=== PATIENT | female | born 1995 | race Caucasian/White ===

== ENCOUNTER 2022-10-05 17:22 | Outpatient (CLI) | payer OTHER, SELFPAY ==
[2022-10-05 18:22] LABS: Beta HCG Quantitative 78.55 mIU/ML
== END 2022-10-05 17:23 | disposition home or self-care (01) ==
LOC: ANHLAB 17:26
PROVIDERS: Visit Provider Obstetrics & Gynecology
DX: O03.9 Complete or unspecified spontaneous abortion without complication (principal); Z3A.00 Weeks of gestation of pregnancy not specified
CPT/HCPCS: 36415; 84702

== ENCOUNTER 2022-10-26 07:02 | Outpatient (CLI) | payer OTHER, SELFPAY ==
[2022-10-26 08:04] LABS: Beta HCG Quantitative < 2.39 mIU/ML
== END 2022-10-26 07:03 | disposition home or self-care (01) ==
LOC: ANHLAB 07:04
PROVIDERS: Visit Provider Obstetrics & Gynecology
DX: O03.9 Complete or unspecified spontaneous abortion without complication (principal); Z3A.00 Weeks of gestation of pregnancy not specified
CPT/HCPCS: 36415; 84702

== ENCOUNTER 2022-11-23 17:31 | Outpatient (CLI) | payer OTHER, SELFPAY ==
[2022-11-23 18:29] LABS: Beta HCG Quantitative 128.67 mIU/ML
[2022-11-25 13:13] LABS: Progesterone 38.3 ng/mL (***)
== END 2022-11-23 17:32 | disposition home or self-care (01) ==
LOC: ANHLAB 17:33
PROVIDERS: Visit Provider Obstetrics & Gynecology
DX: O09.299 Supervision of pregnancy with other poor reproductive or obstetric history, unspecified trimester (principal); Z3A.00 Weeks of gestation of pregnancy not specified
CPT/HCPCS: 36415; 84144; 84702

== ENCOUNTER 2022-11-25 16:54 | Outpatient (CLI) | payer OTHER, SELFPAY ==
[2022-11-25 17:45] LABS: Beta HCG Quantitative 243.39 mIU/ML
== END 2022-11-25 16:55 | disposition home or self-care (01) ==
LOC: ANHLAB 16:55
PROVIDERS: Visit Provider Obstetrics & Gynecology
DX: O09.299 Supervision of pregnancy with other poor reproductive or obstetric history, unspecified trimester (principal)
CPT/HCPCS: 36415; 84702

== ENCOUNTER 2022-11-27 16:25 | Outpatient (CLI) | payer OTHER, SELFPAY | END 2022-11-27 16:26 | disposition home or self-care (01) | LOC: ANHLAB 16:27 | PROVIDERS: Visit Provider Obstetrics & Gynecology | DX: O09.299 Supervision of pregnancy with other poor reproductive or obstetric history, unspecified trimester (principal); Z3A.00 Weeks of gestation of pregnancy not specified | CPT/HCPCS: 36415; 84702; 86850; 86900; 86901 ==

== ENCOUNTER → 2022-12-14 15:53 | Outpatient (CLI) | payer OTHER, SELFPAY ==
--- NOTE | ~2022-12-14 | US_ITS ---
EXAMINATION: US OB <=14 wk fetus w TV DATE: 12/14/2022 16:22 INDICATION: Hemorrhage in early TECHNIQUE: Real-time transabdominal and transvaginal obstetric ultrasound. FINDINGS: No prior studies for comparison. The uterus measures 9.5 x 4.8 x 5.6 cm. There is an intrauterine gestational sac, with pole juan ntified. The crown rump length measures 0.64 cm, which correlates with a estimated gestational age o f 6 weeks 3 days. heart tones are identified measuring 131 BPM. There is a small subchorionic hemorrhage measuring 8 x 7 x 8 mm. There is a corpus luteal cyst of the left ovary measuring 1.6 x 1 .2 x 1.1 cm. IMPRESSION: 1. SL IUP with an EGA of 6 weeks, 3 days (EDC by current ultrasound of 08/06/2023). 2: Small subchorionic hemorrhage measuring 8 x 7 x 8 mm. Reviewed, dictated and finalized at location B. R LIFT OPERATOR IMPRESSION: 1. SL IUP with an EGA of 6 weeks, 3 days (EDC by current ultrasound of 08/06/20 23). 2: Small subchorionic hemorrhage measuring 8 x 7 x 8 mm.
== END ==
PROVIDERS: PCP Obstetrics & Gynecology; Visit Provider Obstetrics & Gynecology
DX: O46.91 Antepartum hemorrhage, unspecified, first trimester (principal); Z3A.01 Less than 8 weeks gestation of pregnancy
CPT/HCPCS: 76801; 76817

== ENCOUNTER 2023-02-09 14:00 | Outpatient (CLI) | payer OTHER, SELFPAY ==
--- NOTE | ~2023-02-09 | US_ITS ---
EXAMINATION: US OB limited DATE: 02/09/2023 14:49 INDICATION: Spotting during first trimester TECHNIQUE: Real-time ultrasound of the pelvis was performed. The interpreting radiologist was not pre sent for the study. COMPARISON: None. FINDINGS: There is a single living fetus in variable presentation. The placenta is anterior. The cerv ical length is 5.1 cm. cardiac activity and movement are noted. heart rate is 152 b eats per minute (bpm). The amniotic fluid index is subjectively normal. IMPRESSION: 1. Single living fetus in variable presentation. No sonographic correlate for the patient's symptoms. Reviewed, dictated and finalized at location L. IMPRESSION: 1. Single living fetus in variable presentation. No sonographic correlate for t he patient's symptoms.
== END 2023-02-09 14:01 | disposition home or self-care (01) ==
PROVIDERS: PCP Obstetrics & Gynecology; Visit Provider Obstetrics & Gynecology
DX: O26.852 Spotting complicating pregnancy, second trimester (principal); Z3A.00 Weeks of gestation of pregnancy not specified
CPT/HCPCS: 76815

== ENCOUNTER 2023-05-10 10:05 | Observation (INO) | payer OTHER, SELFPAY ==
[2023-05-10] VITALS (11 sets, daily range): BP systolic 114–157; BP diastolic 66–92; PULSE 80–107; BMI 30.4
[2023-05-10] MEDS: NIFEdipine 10 MG CAPSULE PO (10:59)
[2023-05-10 11:22] LABS: Basophils Absolute Auto 0.1 K/mm3 (0.0-0.1); Basophils Percent Auto 0.5 % (0.2-1.2); Eosinophils Percent Auto 0.4 % (0-4.4); Hematocrit 35.8 % (37.0-47.0); Hemoglobin 12.2 g/dL (12.0-15.0); Immature Granulocyte Absolute 0.08 K/mm3 (0.00-0.031); Immature Granulocyte Percent A 0.8 % (0-0.5); Lymphocytes Absolute Auto 1.26 K/mm3 (0.9-3.2); Lymphocytes Percent Auto 13.1 % (18.3-44.2); Mean Corpuscular HGB Conc 34.1 g/dl (32-36); Mean Corpuscular Hemoglobin 32.9 pg (26-34); Mean Corpuscular Volume 96.5 fl (80-100); Mean Platelet Volume 9.4 fl (7.4-10.4); Monocytes Absolute Auto 0.5 K/mm3 (0.1-0.6); Monocytes Percent Auto 5.6 % (2.6-8.5); Neutrophils Absolute Auto 7.6 K/mm3 (1.3-6.7); Neutrophils Percent Auto 79.6 % (45.5-73.1); Platelet Count Result 213 k/mm3 (150-375); Red Blood Count 3.71 M/mm3 (4.2-5.4); Red Cell Distribution Width 12.2 % (11.5-14.5); White Blood Count 9.6 K/mm3 (4.5-10.0)
[2023-05-10 11:32] LABS: INR 0.9; Prothrombin Time 12.3 Seconds (11.1-14.7)
[2023-05-10 11:33] LABS: Partial Thromboplastin Time 28.6 SECONDS (22.3-36.8)
[2023-05-10 11:44] LABS: Appearance Urine Clear (Clear); Bacteria Urine Rare /hpf; Bilirubin Urine Negative (Negative); Blood Urine Negative (Negative); Color Urine Yellow (Yellow); Glucose Urine UA Negative (Negative); Ketones Urine Negative (Negative); Leukocyte Esterase Ur Trace LEU/UL (Negative); Nitrate Urine Negative (Negative); Non Pathogenic Casts 0-2; Protein Urine Negative (Negative); RBC Urine 0-2 /hpf (0-2); Specific Grav Ur 1.008 (1.001-1.035); Squamous Epithelial Cell Urine None seen /hpf (Few); Urobilinogen Urine 0.2 mg/dL (<2.0); WBC Urine 0-5 /hpf
[2023-05-10 11:50] LABS: Add Urine Microscopic? YES
[2023-05-10 12:16] LABS: Potassium 3.5 mmol/L (3.4-5.0)
[2023-05-10 12:17] LABS: Alanine Aminotransferase 18 U/L (6-35); Albumin Level 3.8 g/dL (3.5-5.1); Alkaline Phosphatase 84 U/L (38-126); Anion Gap 8 mmol/L (8-16); Aspartate Amino Transferase 25 U/L (14-36); Bilirubin,Total 0.3 mg/dL (0.2-1.3); Blood Urea Nitrogen 5 mg/dL (7-17); Calcium 8.6 mg/dL (8.4-10.2); Carbon Dioxide 20 mmol/L (22-30); Chloride 106 mmol/L (98-107); Estimated Glomerular Filt Rate > 60; Glucose 107 mg/dL (65-110); Sodium 134 mmol/L (137-145); Uric Acid 3.4 mg/dL (2.5-7.5)
--- NOTE | 2023-05-10 12:42 | OBADM ---
This patient, Dulce Palma, admitted to the OB room OB Post 116 for observation. Patient/family oriented to hospital policies and general routines including ID bracelet, bed and alarms, visiting hours, pain management, procedures, bathroom and other care routines, personal items, smoking policy, room service/diet, and visiting hours. Patient/Family are encouraged to report perceived risks to care and to ask questions if they do not understand what they are told or what they should do.
[2023-05-10 13:15] LABS: Total Protein Urine Random 15 mg/dL; Ur Ttl Prot Creatinine Ratio 0.39 mg/mg (0-0.20)
--- NOTE | 2023-05-17 16:15 | PM.OBTRLD ---
OB - Triage/Final Diagnosis Visit Information Comments/Additional reasons for admission: I have assessed the risk for this patient, Dulce Palma, and determined that she would benefit from observation care. Evaluation Laboratory results: Laboratory Tests 05/10/23 05/10/23 05/10/23 10:53 11:02 11:11 WBC 9.6 RBC 3.71 L Hgb 12.2 Hct 35.8 L MCV 96.5 MCH 32.9 MCHC 34.1 RDW 12.2 Plt Count 213 MPV 9.4 Immature Gran % (Auto) 0.8 H Neut % (Auto) 79.6 H Lymph % (Auto) 13.1 L [place] % (Auto) 5.6 Eos % (Auto) 0.4 Baso % (Auto) 0.5 Lymph # (Auto) 1.26 [place] # (Auto) 0.5 Eos # (Auto) 0.0 Baso # (Auto) 0.1 Abs Immat Gran (auto) 0.08 H Absolute Neuts (auto) 7.6 H Absolute Nucleated RBC 0.0 Nucleated RBC % 0.0 PT 12.3 INR 0.9 APTT 28.6 Sodium Potassium Chloride Carbon Dioxide Anion Gap BUN Creatinine Estim Creat Clear Calc Estimated GFR Glucose Uric Acid Calcium Total Bilirubin AST ALT Alkaline Phosphatase Total Protein Albumin Urine Color Yellow Urine Appearance Clear Urine pH 7.0 Ur Specific [place] 1.008 Urine Protein Negative Urine Glucose (UA) Negative Urine Ketones Negative Ur Blood (Man) Negative Urine Nitrate Negative Urine Bilirubin Negative Urine Urobilinogen 0.2 Leukocyte Esterase Rfl Trace H Urine RBC 0-2 Urine WBC 0-5 Ur Squamous Epith Cells None seen Urine Bacteria Rare Urine Casts 0-2 U Random Total Protein 15 Urine Creatinine 38.0 Protein/Creat Ratio 2 0.39 H KB Hemoglobin Negative 05/10/23 11:48 WBC RBC Hgb Hct MCV MCH MCHC RDW Plt Count MPV Immature Gran % (Auto) Neut % (Auto) Lymph % (Auto) [place] % (Auto) Eos % (Auto) Baso % (Auto) Lymph # (Auto) [place] # (Auto) Eos # (Auto) Baso # (Auto) Abs Immat Gran (auto) Absolute Neuts (auto) Absolute Nucleated RBC Nucleated RBC % PT INR APTT Sodium 134 L Potassium 3.5 Chloride 106 Carbon Dioxide 20 L Anion Gap 8 BUN 5 L Creatinine 0.40 L Estim Creat Clear Calc Not Reportable Estimated GFR > 60 Glucose 107 Uric Acid 3.4 Calcium 8.6 Total Bilirubin 0.3 AST 25 ALT 18 Alkaline Phosphatase 84 Total Protein 7.0 Albumin 3.8 Urine Color Urine Appearance Urine pH Ur Specific [place] Urine Protein Urine Glucose (UA) Urine Ketones Ur Blood (Man) Urine Nitrate Urine Bilirubin Urine Urobilinogen Leukocyte Esterase Rfl Urine RBC Urine WBC Ur Squamous Epith Cells Urine Bacteria Urine Casts U Random Total Protein Urine Creatinine Protein/Creat Ratio 2 KB Hemoglobin Final Diagnosis (1) Spotting complicating , third trimester: Code(s): O26.853 - Spotting complicating , third trimester Status: Acute (2) Elevated blood pressure affecting in third trimester, antepartum: Code(s): O16.3 - Unspecified maternal hypertension, third trimester Status: Acute
== END 2023-05-10 13:49 | disposition home or self-care (01) ==
PROVIDERS: Admitting Provider Obstetrics & Gynecology; Visit Provider Obstetrics & Gynecology
DX: O26.853 Spotting complicating pregnancy, third trimester (principal); O16.3 Unspecified maternal hypertension, third trimester; Z3A.27 27 weeks gestation of pregnancy
CPT/HCPCS: 36415; 80053; 81001; 82570; 84156; 84550; 85025; 85460; 85610; 85730; A9270; G0378; G0379

== ENCOUNTER 2023-05-11 14:30 | Outpatient (NON) | payer OTHER, SELFPAY ==
[2023-05-11 14:58] VITALS: BMI 30.2
[2023-05-11 16:32] LABS: Collection Time Urine 24 HOURS
[2023-05-11 16:34] LABS: Total Volume 24 Hour Urine 3200 ml
[2023-05-11 16:35] LABS: Patient Weight 170 Lbs; Specific Gravity Ur 1.011; Total Volume 24 Hour Urine 3200 ml
[2023-05-11 16:44] LABS: Total Protein Urine 24 Hr 448 mg/24hr (28-141); Total Protein Urine Random 14 mg/dL
[2023-05-11 16:45] LABS: Creatinine Clearance Urine 197.7 ml/min (75-125)
== END 2023-05-11 14:31 | disposition home or self-care (01) ==
LOC: ANHOBOP 14:50
PROVIDERS: Visit Provider Obstetrics & Gynecology
DX: Z34.90 Encounter for supervision of normal pregnancy, unspecified, unspecified trimester (principal); Z3A.00 Weeks of gestation of pregnancy not specified
CPT/HCPCS: 81050; 82575; 84156

== ENCOUNTER 2023-05-31 06:57 | Outpatient (CLI) | payer OTHER, SELFPAY ==
[2023-05-31 07:13] VITALS: BMI 30.8
[2023-05-31 07:26] LABS: Alanine Aminotransferase 20 U/L (6-35); Albumin Level 3.7 g/dL (3.5-5.1); Alkaline Phosphatase 89 U/L (38-126); Anion Gap 7 mmol/L (8-16); Aspartate Amino Transferase 26 U/L (14-36); Bilirubin,Total 0.3 mg/dL (0.2-1.3); Blood Urea Nitrogen 5 mg/dL (7-17); Calcium 8.6 mg/dL (8.4-10.2); Carbon Dioxide 17 mmol/L (22-30); Chloride 105 mmol/L (98-107); Estimated CRCL calculation 168 ml/min; Estimated Glomerular Filt Rate > 60; Glucose 118 mg/dL (65-110); Potassium 3.4 mmol/L (3.4-5.0); Sodium 129 mmol/L (137-145)
[2023-05-31 08:56] LABS: Collection Time Urine 24 HOURS; Total Volume 24 Hour Urine 2750 ml
[2023-05-31 09:04] LABS: Creatinine Urine 42.2 mg/dL; Patient Weight 174 Lbs
[2023-05-31 09:10] LABS: Creatinine Clearance Urine 191.9 ml/min (75-125); Serum Creat 0.4
[2023-05-31 10:08] LABS: Specific Gravity Ur 1.007
[2023-05-31 10:21] LABS: Total Protein Urine 24 Hr 204 mg/24hr (0-149); Total Protein Urine Random 7.4 mg/dL (0.0-11.9)
== END 2023-05-31 06:58 | disposition home or self-care (01) ==
LOC: ANHOBOP 07:04
PROVIDERS: Visit Provider Obstetrics & Gynecology
DX: Z34.90 Encounter for supervision of normal pregnancy, unspecified, unspecified trimester (principal); Z3A.00 Weeks of gestation of pregnancy not specified
CPT/HCPCS: 36415; 80053; 81050; 82575; 84156

== ENCOUNTER 2023-06-22 11:06 | Outpatient (CLI) | payer OTHER, SELFPAY | END 2023-06-22 11:07 | disposition home or self-care (01) | LOC: ANHLAB 11:06 | PROVIDERS: Visit Provider Obstetrics & Gynecology | DX: N39.0 Urinary tract infection, site not specified (principal) | CPT/HCPCS: 87086 ==

== ENCOUNTER 2023-08-04 23:28 | Inpatient (IN) | payer OTHER, SELFPAY ==
[2023-08-04 23:50] VITALS: BP 132/103; PULSE 97
[2023-08-05] VITALS (211 sets, daily range): BP systolic 93–167; BP diastolic 50–136; PULSE 51–296; RESP 13–16; TEMP 36.2–36.7; O2SAT 89–100; BMI 31.9
[2023-08-05 00:43] LABS: Basophils Percent Auto 0.5 % (0.2-1.2); Eosinophils Absolute Auto 0.1 K/mm3 (0-0.3); Eosinophils Percent Auto 1.2 % (0-4.4); Hematocrit 36.8 % (37.0-47.0); Hemoglobin 12.5 g/dL (12.0-15.0); Immature Granulocyte Absolute 0.02 K/mm3 (0.00-0.031); Immature Granulocyte Percent A 0.3 % (0-0.5); Lymphocytes Percent Auto 23.1 % (18.3-44.2); Mean Corpuscular Hemoglobin 31.3 pg (26-34); Mean Platelet Volume 11.3 fl (7.4-10.4); Monocytes Absolute Auto 0.5 K/mm3 (0.1-0.6); Monocytes Percent Auto 7.3 % (2.6-8.5); Neutrophils Percent Auto 67.6 % (45.5-73.1); Platelet Count Result 195 k/mm3 (150-375); Red Cell Distribution Width 12.3 % (11.5-14.5); White Blood Count 7.4 K/mm3 (4.5-10.0)
[2023-08-05] MEDS: LACTATED RINGERS 1,000 ML 125 ML IV CONT ×2 (00:54→08:04)
[2023-08-05] MEDS: AMPICILLIN 2 GM/NS 100 ML 2 GM/100 ML BAG IVPB (00:57)
[2023-08-05] MEDS: OXYTOCIN 30 UNITS/NS 500 ML 30 UNITS/500 ML BAG 6 UNITS IV CONT (01:04)
--- NOTE | 2023-08-05 01:10 | LDADM ---
This patient, Dulce Palma, was admitted to Labor/Delivery/Recovery 107 on 08/04/23 at 11:28. Plans for labor, pain management and were discussed with patient. Patient/family oriented to hospital policies and general routines including ID bracelet, bed and alarms, visiting hours, pain management, procedures, bathroom and other care routines, personal items, smoking policy, room service/diet and guest tray routines, infant security routines, and visiting hours. Patient/Family are encouraged to report perceived risks to care and to ask questions if they do not understand what they are told or what they should do. See OBIX for further documentation.
--- NOTE | 2023-08-05 04:59 | WPDANESEPP ---
Anes - Eval Pre Procedure Procedure: Labor epidural Date/Time: 08/05/23 04:59 Surgeon: Priyanka Preop Diagnosis: Abdominal pain with contractions Pre Op Diagnosis: iol Patient Data Age: 28 Gender: F Height: 1.6 m Weight: 81.8 kg Last Vital Signs Temp 97.1 F L 08/05/23 03:11 Pulse 70 08/05/23 04:59 BP 113/68 08/05/23 04:59 Pulse Ox 99 08/05/23 04:56 O2 Del Method Room Air 08/05/23 01:08 Allergies Allergy/AdvReac Type Severity Reaction Status Date / Time No Known Allergies Allergy Verified 08/05/23 01:29 Home Medications Medication Instructions Recorded Confirmed Type vits 75-iron 28 mg-folic pkg PO 09/14/22 07/22/23 History acid 800 mcg-omega-3 oral combo pack (One A Day Women's DHA) cholecalciferol (vitamin D3) 50 50 mcg PO DAILY 04/02/23 08/05/23 History mcg (2,000 unit) capsule Laboratory Tests 08/05/23 00:15 WBC 7.4 K/mm3 (4.5-10.0) RBC 4.00 L M/mm3 (4.2-5.4) Hgb 12.5 g/dL (12.0-15.0) Hct 36.8 L % (37.0-47.0) MCV 92.0 fl (80-100) MCH 31.3 pg (26-34) MCHC 34.0 g/dl (32-36) RDW 12.3 % (11.5-14.5) Plt Count 195 k/mm3 (150-375) MPV 11.3 H fl (7.4-10.4) Immature Gran % (Auto) 0.3 % (0-0.5) Neut % (Auto) 67.6 % (45.5-73.1) Lymph % (Auto) 23.1 % (18.3-44.2) [place] % (Auto) 7.3 % (2.6-8.5) Eos % (Auto) 1.2 % (0-4.4) Baso % (Auto) 0.5 % (0.2-1.2) Lymph # (Auto) 1.70 K/mm3 (0.9-3.2) [place] # (Auto) 0.5 K/mm3 (0.1-0.6) Eos # (Auto) 0.1 K/mm3 (0-0.3) Baso # (Auto) 0.0 K/mm3 (0.0-0.1) Abs Immat Gran (auto) 0.02 K/mm3 (0.00-0.031) Absolute Neuts (auto) 5.0 K/mm3 (1.3-6.7) Absolute Nucleated RBC 0.0 K/mm3 (0.0-0.012) Nucleated RBC % 0.0 % (0.0-0.2) RPR Pending Blood Type B Positive Antibody Screen Negative : gestational age HCG: positive Patient hx anesthesia problems: none Family hx anesthesia problems: none Results Review: All pre-operative results and documents have been reviewed as part of the pre-operative evaluation. [facility]LY [facility] Past Medical History Medical History Crohn's colitis Overweight (BMI 25.0-29.9) Family History Family History Other Alcohol abuse Cerebrovascular accident Depression Diabetes mellitus Hypertension Social History Social History Social History: never Smoking status: Never smoker Second hand tobacco smoke exposure: No Alcohol intake: former Alcohol use details: none Substance use: never Lack of Transportation: No Lack of Food: Never True Current Housing: I Have Housing Concerned About Future Housing: No Difficulty Paying Gas/Electric Bills: No Difficulty Paying for Meds: No Currently Unemployed: No Education: High School Diploma/GED Difficulty w/ Childcare or Family Care: No Living arrangements: with family Occupation/Education: occupation Gender identity (if verbalized by the patient): Female Sexual Orientation (if Verbalized by the Patient): Straight or Heterosexual Spiritual care concerns: No Exam Day of Procedure 08/05/23 04:59 Patient weight: overweight Airway: Mallampati scale class II
[2023-08-05] MEDS: AMPICILLIN 1 GM/NS 50 ML 1 GM/50 ML BAG IVPB ×3 (05:02→13:28)
[2023-08-05] MEDS: ONDANSETRON INJ 4 MG/2 ML VIAL IV PUSH (08:01)
[2023-08-05 09:17] LABS: Rapid Plasma Reagin Non-Reactive (NonReactive)
[2023-08-05] MEDS: LACTATED RINGERS 500 ML 999 ML IV CONT (16:51)
[2023-08-05] MEDS: AZITHROMYCIN 500 MG/NS 250 ML 500 MG/250 ML BAG 250 MG IVPB (16:53)
--- NOTE | 2023-08-05 16:55 | PM.IMHP ---
H&P: HPI History of Present Illness Date/Time: 08/05/23 16:55 Chief Complaint: Medical induction of labor Narrative: She is a 28 y/o G2 at 39 5/7 admitted in labor. She was scheduled for induction and presented melanie and with cervical change. PNC significant for h/o Crohns disease which has been stable prior to . No medication. Also several ultrasounds LGA. There was one ultrasound with polyhydramnios which resolved. Last ultrasound EFW within normal range. She has opted for MIL. She has been counseled regarding risk benefits of induction vs onset of spontaneous labor. Review of Systems Review of Systems: All systems reviewed & are unremarkable except as noted in HPI and below Constitutional: Constitutional: Reports no additional constitutional complaints and Denies headache(s) Eyes: Eyes: Denies spots in vision ENT: Reports system reviewed and no additional complaints, except as documented and Denies headache(s) Cardiovascular: Cardiovascular: Denies chest pain and Denies dyspnea Respiratory: Respiratory: Denies dyspnea Gastrointestinal: Gastrointestinal: Reports no additional gastrointestinal complaints Genitourinary: Genitourinary: Reports amenorrhea Musculoskeletal: Musculoskeletal: Reports no additional musculoskeletal complaints Integumentary/Breasts: Skin/Breast: Denies breast mass and Denies rash Neurologic: Denies headache(s) Psychiatric: Psychiatric: Reports no additional psychiatric complaints [facility] Past Medical History Medical History Crohn's colitis Overweight (BMI 25.0-29.9) Family History Family History Other Alcohol abuse Cerebrovascular accident Depression Diabetes mellitus Hypertension Social History Social History Social History: never Smoking status: Never smoker Second hand tobacco smoke exposure: No Alcohol intake: former Alcohol use details: none Substance use: never Lack of Transportation: No Lack of Food: Never True Current Housing: I Have Housing Concerned About Future Housing: No Difficulty Paying Gas/Electric Bills: No Difficulty Paying for Meds: No Currently Unemployed: No Education: High School Diploma/GED Difficulty w/ Childcare or Family Care: No Living arrangements: with family Occupation/Education: occupation Gender identity (if verbalized by the patient): Female Sexual Orientation (if Verbalized by the Patient): Straight or Heterosexual Spiritual care concerns: No Meds Home Medications and Allergies Home Medications Medication Instructions Recorded Confirmed Type vits 75-iron 28 mg-folic pkg PO 09/14/22 07/22/23 History acid 800 mcg-omega-3 oral combo pack (One A Day Women's DHA) cholecalciferol (vitamin D3) 50 50 mcg PO DAILY 04/02/23 08/05/23 History mcg (2,000 unit) capsule Allergies Allergy/AdvReac Type Severity Reaction Status Date / Time No Known Allergies Allergy Verified 08/05/23 01:29 Vital Signs Vital Signs - 24 hr 08/04/23 23:50 08/05/23 00:01 08/05/23 01:01 Temperature Pulse Rate 97 85 88 Blood Pressure 132/103 H 166/94 H 122/81 Pulse Oximetry Oxygen Delivery 08/05/23 01:31 08/05/23 02:01 08/05/23 01:27 Temperature 97.5 F L Pulse Rate 80 59 L Blood Pressure 135/94 H 134/83 Pulse Oximetry Oxygen Delivery 08/05/23 02:31 08/05/23 03:10 08/05/23 03:11 Temperature 97.1 F L Pulse Rate 85 85 Blood Pressure 141/95 H 143/96 H Pulse Oximetry Oxygen Delivery 08/05/23 04:08 08/05/23 04:19 08/05/23 04:24 Temperature Pulse Rate 75 Blood Pressure 149/107 H Pulse Oximetry 100 100 Oxygen Delivery 08/05/23 04:29 08/05/23 04:30 08/05/23 04:31 Temperature Pulse Rate 89 91 Blood Pressure 144/107 H
--- NOTE | 2023-08-05 18:27 | PM.OP ---
Procedure Note - Brief Procedure Note - Brief Date of procedure: 08/05/23 intolerance to labor Post-op diagnosis: Same Procedure performed: Primary low transverse section Surgeon: Arsenio Mathew MD Anesthesia: epidural Estimated blood loss (mL): 1,500 Drains: No Packing: No Pathology: Yes (placenta and cord) Complications: No immediate complications Condition: Stable Disposition: Floor
[2023-08-05] MEDS: HYDROcodone/acetaminophen (*CRX) 5-325 MG TABLET 1 TAB PO ×2 (19:29→23:14)
--- NOTE | 2023-08-05 20:02 | OBPPTRN ---
Patient transferred to post room #291 via stretcher. Support person present. Oriented to unit, room, information board, rooming in, admission packet and security measures. Patient verbalizes understanding. Infant with patient.
[2023-08-06] MEDS: HYDROcodone/acetaminophen (*CRX) 5-325 MG TABLET 1 TAB PO ×2 (05:00→20:59)
[2023-08-06] MEDS: IBUPROFEN 600 MG TABLET PO (05:00)
[2023-08-06 05:35] LABS: Basophils Absolute Auto 0.1 K/mm3 (0.0-0.1); Basophils Percent Auto 0.5 % (0.2-1.2); Eosinophils Percent Auto 0.1 % (0-4.4); Hematocrit 23.9 % (37.0-47.0); Hemoglobin 7.9 g/dL (12.0-15.0); Immature Granulocyte Absolute 0.06 K/mm3 (0.00-0.031); Immature Granulocyte Percent A 0.4 % (0-0.5); Lymphocytes Absolute Auto 0.94 K/mm3 (0.9-3.2); Lymphocytes Percent Auto 6.5 % (18.3-44.2); Mean Corpuscular HGB Conc 33.1 g/dl (32-36); Mean Corpuscular Hemoglobin 31.6 pg (26-34); Mean Corpuscular Volume 95.6 fl (80-100); Mean Platelet Volume 10.6 fl (7.4-10.4); Monocytes Absolute Auto 0.7 K/mm3 (0.1-0.6); Monocytes Percent Auto 4.9 % (2.6-8.5); Neutrophils Absolute Auto 12.8 K/mm3 (1.3-6.7); Neutrophils Percent Auto 87.6 % (45.5-73.1); Platelet Count Result 154 k/mm3 (150-375); Red Cell Distribution Width 12.6 % (11.5-14.5); White Blood Count 14.5 K/mm3 (4.5-10.0)
[2023-08-06 05:40] VITALS: BP 119/70; PULSE 85; RESP 16; TEMP 36.2
--- NOTE | 2023-08-06 06:31 | W.PM.PROC2 ---
Procedure Note - Detailed Date of Procedure 08/06/23 Pre-op Diagnosis intolerance to labor Post-op Diagnosis Same Procedure Performed Primary section Surgeon Arsenio Mathew MD Anesthesia Epidural Indications Patient presented in early labor. She did have SROM light meconium. She continued to progress well to 9cm. She dilated slowly to complete with position changes, position noted to be in OP position. She did dilate to complete and with 30 minutes of pushing had repetitive late decelerations and was not near delivery and was recommended for section for intolerance to labor. She was informed of risk benefits of and risk of continuing to push and she agreed with primary section. Findings Male infant, OT,[id number], apgars 7,8, peds staff in attendance, thick meconium, normal uterus and ovaries bilaterally, uterine was hypotonic, improved with IM methergine 0.2mg. Description of Procedure After informed consent, risks and benefits of the procedure was discussed with the patient. The patient was taken to the operating room where she was placed in the dorsal lithotomy position with leftward tilt. After the prior placed epidural anesthesia was found to be adequate, heart tones 160s, she was then prepped and draped in the usual sterile fashion. A Pfannenstiel skin incision was made with a scalpel and carried through to the underlying layer of fascia. The fascia was then nicked in the midline, extending bilaterally. The fascia was dissected off the rectus muscles bluntly and sharply, superiorly and inferiorly. The rectus muscles were in the midline, and peritoneum was identified and entered bluntly. The pelvic organs were visualized. The bladder blade was then inserted. The vesicouterine peritoneum was identified and entered sharply with Metzenbaum scissors and extended bilaterally and then the bladder flap was created digitally. The low transverse uterine incision was then made with the scalpel and extended with bilateral index fingers in a crescent-shaped fashion. There was noted to be thick meconium. The head was delivered and the rest of the was delivered. The nose and mouth suctioned. The cord was clamped twice and cut. The infant was then handed off to the awaiting pediatric staff. The placenta was then delivered manually.The uterus was then exteriorized. The uterine cavity was sponge curretted. Pitocin was started. There was uterine atony despite uterine massage. She was given 0.2mg Methergine in uterine muscle. Tone improved. There was an area of at the endometrium in the lower uterine segment that was bleeding this was clamped. The uterine incision was then closed with 0 vicryl in a running locked fashion. Several figure of eight sutures of 0 vicryl at the incision was used for hemostasis. Umbricating stitches figure of eight were used also. The uterus was then returned to the abdomen. Bilateral gutters were cleared off all clots and debris. The uterine incision was noted to be hemostatic. Interceed placed on uterine incision and vertically on front of uterus. The muscle bellies were inspected and noted to be hemostatic. The subfascial layer was noted to be hemostatic, and the fascia was closed with 0 Vicryl in a running fashion. The subcutaneous layer was irrigated and then closed with 3-0 Vicryl in a subcutaneous fashion. The skin was closed with dissolveable jenny. Skin dermabond applied at incision. All instruments, needle, and lap counts were correct x3. The patient was taken to the recovery room in stable condition. Estimated Blood Loss 1,500 Drains No Packing No Pathology Yes (placenta and cord) Complications No immediate complications Condition Stable Disposition Floor [facility] Billing Surgery - Charge Forward: Surgery Billing
[2023-08-06 08:30] VITALS: BP 102/57; PULSE 94; RESP 18; TEMP 36.8; O2SAT 97
[2023-08-06] MEDS: DOCUSATE SODIUM 100 MG CAPSULE PO ×2 (08:45→17:08)
[2023-08-06] MEDS: POLYSACCHARIDE IRON COMPLEX 150 MG CAPSULE PO ×2 (08:45→17:08)
[2023-08-06] MEDS: MULTIVIT/MIN/PREN/FOL AC/IRON TABLET 1 TAB PO (08:45)
[2023-08-06] MEDS: HYDROcodone/acetaminophen (*CRX) 10-325 MG TABLET 1 TAB PO ×3 (08:46→18:04)
--- NOTE | 2023-08-06 09:17 | PM.OBPNVD ---
OB - PN: Subj Subjective Date/time seen: 08/06/23 09:17 Interval history: She states pain 03/27, had episode of some incision drainage last night none since, attempting breast feeding, has not sat up in chair or ambulated, no flatus, has not had regular food. Denies leg pain or lightheadedness or dizziness. OB - PN: Obj Data Labs 08/06/23 05:11 Labs: Laboratory Results - last 24 hr 08/05/23 08/06/23 00:15 05:11 WBC 14.5 H RBC 2.50 L Hgb 7.9 L D Hct 23.9 L MCV 95.6 MCH 31.6 MCHC 33.1 RDW 12.6 Plt Count 154 MPV 10.6 H Immature Gran % (Auto) 0.4 Neut % (Auto) 87.6 H Lymph % (Auto) 6.5 L [place] % (Auto) 4.9 Eos % (Auto) 0.1 Baso % (Auto) 0.5 Lymph # (Auto) 0.94 [place] # (Auto) 0.7 H Eos # (Auto) 0.0 Baso # (Auto) 0.1 Abs Immat Gran (auto) 0.06 H Absolute Neuts (auto) 12.8 H Absolute Nucleated RBC 0.0 Nucleated RBC % 0.0 RPR Non-reactive OB - PN A/P Assessment and Plan (1) Delivery by section: Status: Acute Assessment and Plan: POD1 doing well. Routine post care. Will try Toradol prn. Time Spent With Patient Time: Total time spent is greater than 50% in coordination of care (as documented) at patient's floor/unit and/or counseling patient: Exam Const: General: comfortable and no acute distress Resp: Effort & Inspection: normal respiratory effort GI: Other: incision intact, no drainage, fundus appropriate tender, -3 umb Psych: Mental Status: mental status grossly normal Affect: normal affect
--- NOTE | 2023-08-06 12:23 | WPDANLDNPN2 ---
Anes-Prog Note L&D-Neuraxial Date/Time: 08/06/23 12:23 Patient feedback: Patient satisfied with post-operative pain management.
--- NOTE | 2023-08-06 12:23 | WPDANLDPN2 ---
Anes-Prog Note L&D Date/Time: 08/06/23 12:23 Neuro status: Neuro function grossly intact. Cardiovascular status: normal Respiratory status: normal Airway patency: baseline Mental status: baseline Post-Op hydration status: normal Vital Signs: Last Vital Signs Temp 36.8 C 08/06/23 08:30 Pulse 94 08/06/23 08:30 Resp 18 08/06/23 08:30 BP 102/57 L 08/06/23 08:30 Pulse Ox 97 08/06/23 08:30 O2 Del Method Room Air 08/05/23 20:02 Pain score (VAS): 0 I/O: Intake & Output 08/05/23 08/06/23 08/06/23 23:59 07:59 15:59 Intake Total 240 1000 Output Total 150 1300 Balance 90 -300 Post-procedural complaints: none Patient feedback: Patient satisfied with anesthetic care.
[2023-08-06 12:40] VITALS: BP 119/84; PULSE 95; RESP 18; TEMP 36.9; O2SAT 99
[2023-08-06] MEDS: KETOROLAC 30 MG/ML VIAL (*BKC) IV PUSH ×2 (13:30→21:00)
--- NOTE | 2023-08-06 15:24 | PC.NURSE ---
[id number] Introductions were made, then consulted with patient to assess needs related to . Mother led the conversation with her?plans to feed?her infant, the?experience so far and inquired with many questions that were discussed and answered. Father states that the infant was circumcised today and he is sleepy and will not finish the bottle of pumped colostrum. Mother is excited and encouraged to slow down a bit and was reminded that many of her concerns and questions were typical behaviors less than 24 hours old after a circumcision. Mother would ask another question or discuss other topics before a question could be answered. There are visitors in the room at this time and grandma is holding the infant. Reviewed common behaviors the first 24 hours, then what to expect the 2nd 24 hours. Demonstrated to family how to stimulate waking infant, burping and feeding the remaining colostrum from the bottle with chin support. (Parents state 3 mls total) Reviewed flange fitting and there is to not be any pain with pumping. (mother is using her personal Spectra 1 pump) Protecting her milk supply with pumping 8 times in 24 hours 1-2 times at night. We discussed the proper use of the nipple shield as a tool for training infant to open wide and practicing with and without the shield. Mother describes the correct manner to attach the nipple shield to her breast. Parent state when is latched to the breast with the nipple shield the shield cannot be seen. Encouraged mother to place infant [id number] as infant was alert searching the paternal grandmothers chest and there was no action to place [id number]. Used the pie demonstration to discuss how to assess for needs. Mother went to the restroom. Father of the baby was encouraged to place infant to mother's chest [id number] after she was ready to do so and call for assistance with latching. Resources provided for inpatient with name written on the white board. Father voiced understanding of information and will call if there is a request for assistance. Reported to the primary RN.
[2023-08-06 20:40] VITALS: BP 119/62; PULSE 104; RESP 16; TEMP 36.8; O2SAT 99
[2023-08-07] MEDS: IBUPROFEN 600 MG TABLET PO ×3 (06:02→23:24)
[2023-08-07] MEDS: HYDROcodone/acetaminophen (*CRX) 10-325 MG TABLET 1 TAB PO ×3 (06:03→15:59)
[2023-08-07 08:00] VITALS: BP 101/55; PULSE 81; RESP 16; TEMP 36.8; O2SAT 100
[2023-08-07] MEDS: POLYSACCHARIDE IRON COMPLEX 150 MG CAPSULE PO ×2 (11:17→16:03)
[2023-08-07] MEDS: MULTIVIT/MIN/PREN/FOL AC/IRON TABLET 1 TAB PO (11:17)
[2023-08-07] MEDS: DOCUSATE SODIUM 100 MG CAPSULE PO ×2 (11:17→16:03)
--- NOTE | 2023-08-07 12:18 | PM.OBPNVD ---
OB - PN: Subj Subjective Date/time seen: 08/07/23 12:18 Interval history: She states pain improved, breast feeding improving, she has ambulated no problems. She has had positive flatus. Tolerating regular food. Denies lightheadedness or dizziness. Denies shortness of breath or chest pain. OB - PN: Obj Data Labs 08/06/23 05:11 OB - PN A/P Assessment and Plan (1) Delivery by section: Status: Acute Assessment and Plan: Postop day 2. Doing well. Asymptomatic anemia. Continue iron therapy. Continue routine postop care. Time Spent With Patient Time: Total time spent is greater than 50% in coordination of care (as documented) at patient's floor/unit and/or counseling patient: Exam Const: General: comfortable and no acute distress Resp: Effort & Inspection: normal respiratory effort Auscultation: clear to auscultation bilaterally GI: Other: Fundus -2 umbilicus firm nontender incision intact no drainage Extrem: General: normal to inspection and no calf tenderness Psych: Mental Status: mental status grossly normal Affect: normal affect
[2023-08-07 20:00] VITALS: BP 114/72; PULSE 75; RESP 16; TEMP 36.3; O2SAT 100
[2023-08-07] MEDS: SIMETHICONE 80 MG TAB.CHEW PO ×2 (20:25→23:23)
[2023-08-07] MEDS: HYDROcodone/acetaminophen (*CRX) 5-325 MG TABLET 1 TAB PO ×2 (20:25→23:23)
[2023-08-08] MEDS: HYDROcodone/acetaminophen (*CRX) 10-325 MG TABLET 1 TAB PO (03:17)
[2023-08-08] MEDS: IBUPROFEN 600 MG TABLET PO (05:43)
[2023-08-08 08:00] VITALS: BP 109/66; PULSE 89; RESP 16; TEMP 36.4; O2SAT 100
--- NOTE | 2023-08-08 08:46 | PC.NURSE ---
Patient viewed the discharge video Mother & Baby Care, The First Two Weeks . Patient was given the opportunity and encouraged to ask questions. Patient verbalized understanding of information shared and has been given the mother/baby guide for home reference.
[2023-08-08] MEDS: MULTIVIT/MIN/PREN/FOL AC/IRON TABLET 1 TAB PO (08:52)
[2023-08-08] MEDS: DOCUSATE SODIUM 100 MG CAPSULE PO (08:52)
[2023-08-08] MEDS: POLYSACCHARIDE IRON COMPLEX 150 MG CAPSULE PO (08:52)
[2023-08-08] MEDS: HYDROcodone/acetaminophen (*CRX) 5-325 MG TABLET 1 TAB PO (08:53)
--- NOTE | 2023-08-08 10:18 | PM.OBPNVD ---
OB - PN: Subj Subjective Date/time seen: 08/08/23 10:18 Interval history: She states pain improved, breast feeding improving, she has ambulated no problems. She has had positive flatus. Tolerating regular food. Denies lightheadedness or dizziness. Denies shortness of breath or chest pain. Patient comments: no complaints baby status: doing well OB - PN: Obj Data Labs 08/06/23 05:11 OB - PN A/P Assessment and Plan (1) Delivery by section: Status: Acute Assessment and Plan: POD3. Doing well. Discharge to home. Time Spent With Patient Time: Total time spent is greater than 50% in coordination of care (as documented) at patient's floor/unit and/or counseling patient: Exam Const: General: comfortable and no acute distress Resp: Effort & Inspection: normal respiratory effort Auscultation: clear to auscultation bilaterally GI: Other: incision intact no drainage : Other: fundus -3umb firm Psych: Mental Status: mental status grossly normal
--- NOTE | 2023-08-08 10:27 | PM.OBDSVD ---
DS: Admitting Diagnosis Discharge Date 08/08/23 Admitting Diagnosis Labor DS: Discharge Diagnosis Discharge Diagnosis (1) Failure of descent in labor, delivered, current hospitalization: Code(s): O62.2 - Other uterine inertia Status: Acute (2) Postoperative anemia: Code(s): D64.9 - Anemia, unspecified Status: Acute Assessment and Plan: Asymptomatic. Oral iron therapy. OB - DS: Summary Hospital Course Hospital Course: She was admitted in labor. She dilated well until 9 cm. She had pitocin augmentation. She dilated to complete and there was intolerance to pushing after 30 minutes and she was recommended for section. She had an uncomplicated . She did well post-operatively. She had post -op anemia, asymptomatic. Did well on oral iron therapy. On post op day 2 she was ambulating well, tolerating regular diet and positive flatus. Baby was doing well. She was discharged to home on post op day 3. OB Procedures : Ultrasound OB Procedures Intrapartum: OB Procedures: : None Peripartum Data Delivery Method: Natural Vaginal Procedures: Procedures Operation Date: 08/05/23 17:00 Actual Procedure Side Surgeon p Section Arsenio Mathew MD complications: none Status at Discharge Functional status at discharge: independent ambulation Time Spent with Patient Time attestation: Total time spent providing and/or coordinating discharge services: Exam Const: General: cooperative Orientation/consciousness: oriented to person, oriented to place and oriented to time HENMT: Face/Nose/Sinus: Normal external nose present Eyes: General: appearance normal, both eyes and all related structures Resp: Effort & Inspection: normal respiratory effort GI: Inspection: normal to inspection Other: incision intact fundus firm Skin: General skin exam: normal color Neuro: General: oriented to person, oriented to place and oriented to time Extrem: General: normal to inspection and no calf tenderness Psych: Appearance: grossly normal Mental Status: mental status grossly normal DS: Data Data Completed and Pending Pending studies at discharge: Pending at discharge 08/05/23 17:28 Surgical [PTH] Routine Procedures/Treatments: Primary low transverse section Discharge Plan Discharge Attending physician on discharge: Arsenio Mathew Consulting providers: Rocky Mcdonald Discharging Clinician: Arsenio Mathew Anticipated Discharge Date/Time: 08/08/23 10:21 Patient Disposition: Home, Self-Care Activity: may shower, no straining, no driving and pelvic rest Diet: regular Discharge Instructions: Take Slo Fe twice a day. Take daily vitamin. May take Colace and/or Miralax for constipation. Patient Instructions: Antibiotic Form, (DC) Stand Alone Forms: General Discharge Information Follow-up/Referrals: Arsenio Mathew MD [Physician] - 2 Weeks (Call for appointment) Discharge Medications: New hydrocodone-acetaminophen 5-325 mg Tablet 1 tablet PO Q3H PRN (Reason: Moderate Pain greater than 5) Qty: 20 0RF Continued One A Day Women's DHA 28 mg iron- 800 mcg combo pack PO cholecalciferol (vitamin D3) 50 mcg (2,000 unit) capsule 50 mcg PO DAILY Date of admission: 08/04/23 23:28 Primary Care Provider: PHYSICIAN,SPANISH INTERPRETER/TRANSLATOR Admitting Provider: Arsenio Mathew Attending physician on admission: Arsenio Mathew Condition: Stable
[2023-08-09 16:28] VITALS: BP 147/75; PULSE 87; RESP 18; TEMP 37.1; O2SAT 99
== END 2023-08-08 12:25 | disposition home or self-care (01) | DRG 787 ==
LOC: ANHLDR 08-05 09:31 → ANHOB2 08-05 20:06
PROVIDERS: Admitting Provider Obstetrics & Gynecology; Visit Provider Obstetrics & Gynecology
PROC: (CPT 59514; principal; 2023-08-05 17:00)
DX: O99.824 Streptococcus B carrier state complicating childbirth (principal); D62 Acute posthemorrhagic anemia; O36.8330 Maternal care for abnormalities of the fetal heart rate or rhythm, third trimester, not applicable or unspecified; Z37.0 Single live birth; Z3A.39 39 weeks gestation of pregnancy; O77.0 Labor and delivery complicated by meconium in amniotic fluid; O62.2 Other uterine inertia; O90.81 Anemia of the puerperium
CPT/HCPCS: 36415; 85025; 86592; 86850; 86900; 86901; 88307; A9270; J0290; J0456; J1885; J2210; J2274; J2405; J2590; J2795; J3010; J7120

== ENCOUNTER 2024-08-23 16:24 | Outpatient (CLI) | payer OTHER, SELFPAY ==
[2024-08-23 17:32] LABS: Beta HCG Quantitative 68.39 mIU/ML
[2024-08-24 14:29] LABS: Progesterone 34.1 ng/mL
== END 2024-08-23 16:25 | disposition home or self-care (01) ==
LOC: ANHLAB 16:26
PROVIDERS: Visit Provider Obstetrics & Gynecology
DX: O09.299 Supervision of pregnancy with other poor reproductive or obstetric history, unspecified trimester (principal); Z3A.00 Weeks of gestation of pregnancy not specified
CPT/HCPCS: 36415; 84144; 84702

== ENCOUNTER 2024-08-25 16:07 | Outpatient (CLI) | payer OTHER, SELFPAY ==
[2024-08-25 16:48] LABS: Beta HCG Quantitative 166.33 mIU/ML
== END 2024-08-25 16:08 | disposition home or self-care (01) ==
LOC: ANHLAB 16:08
PROVIDERS: Visit Provider Obstetrics & Gynecology
DX: O09.299 Supervision of pregnancy with other poor reproductive or obstetric history, unspecified trimester (principal); Z3A.00 Weeks of gestation of pregnancy not specified
CPT/HCPCS: 36415; 84702

== ENCOUNTER 2024-09-22 08:34 | Outpatient (CLI) | payer OTHER, SELFPAY ==
--- NOTE | ~2024-09-22 | US_ITS ---
Pelvic ultrasound. Clinical History: First trimester , establish dates and viability Technique: Realtime transabdominal and transvaginal scanning of the pelvis was performed. Color flow Doppler and Doppler spectral analysis were performed. Findings: The uterus is anteverted, and contains an intrauterine gestation. Small subchorionic hemorr kimber present, measuring 9 mm in size. [place]-rump length of 1.8 cm corresponds to an estimated gestati onal age of 8 weeks 2 days. heart rate is 165 bpm. Neither ovary seen. No adnexal mass seen. There is no evidence of free fluid in the cul de sac. Impression: Live intrauterine gestation, with estimated gestational age of 8 weeks 2 days. heart rate is 16 5 bpm. Small subchorionic hemorrhage, as above. Reviewed, dictated and finalized at location . EN MAKING SUPERVISOR Impression: Live intrauterine gestation, with estimated gestational age of 8 weeks 2 days. heart rate is 165 bpm. Small subchorionic hemorrhage, as above.
== END 2024-09-22 08:35 | disposition home or self-care (01) ==
LOC: MICIMG 08:35
PROVIDERS: PCP Nurse Practitioner Obstetrics & Gynecology; Visit Provider Nurse Practitioner Obstetrics & Gynecology
DX: N91.2 Amenorrhea, unspecified (principal)
CPT/HCPCS: 76801; 76817

== ENCOUNTER 2024-11-04 11:33 | Outpatient (CLI) | payer OTHER, SELFPAY ==
[2024-11-04 11:46] LABS: Collection Time Urine 24 HOURS
[2024-11-04 12:14] LABS: Alanine Aminotransferase 19 U/L (6-35); Albumin Level 4.4 g/dL (3.5-5.1); Alkaline Phosphatase 48 U/L (38-126); Anion Gap 8 mmol/L (4-12); Aspartate Amino Transferase 23 U/L (14-36); Bilirubin,Total 0.5 mg/dL (0.2-1.3); Blood Urea Nitrogen 9 mg/dL (7-17); Calcium 9.6 mg/dL (8.4-10.2); Carbon Dioxide 25 mmol/L (22-30); Chloride 103 mmol/L (98-107); Estimated Glomerular Filt Rate > 60; Glucose 77 mg/dL (65-110); Sodium 136 mmol/L (137-145)
[2024-11-04 12:26] LABS: Creatinine Urine 57.5 mg/dL; Patient Weight 146 Lbs
[2024-11-04 12:28] LABS: Total Volume 24 Hour Urine 2250 ml
[2024-11-04 12:29] LABS: Creatinine Clearance Urine 219.5 ml/min (75-125); Serum Creat 0.42
== END 2024-11-04 11:34 | disposition home or self-care (01) ==
LOC: ANHLAB 11:34
PROVIDERS: Visit Provider Obstetrics & Gynecology
DX: O16.9 Unspecified maternal hypertension, unspecified trimester (principal); Z3A.00 Weeks of gestation of pregnancy not specified
CPT/HCPCS: 36415; 80053; 82575; 84443

== ENCOUNTER 2025-04-17 09:20 | Outpatient (RCR) | payer OTHER, SELFPAY ==
[2025-04-05 10:11] VITALS: BP 117/66; PULSE 77
[2025-04-11 13:43] VITALS: BP 97/70; PULSE 92
--- NOTE | ~2025-04-17 | US_ITS ---
EXAMINATION: US OB limited DATE: 04/05/2025 11:08 INDICATION: Assess amniotic fluid index during third trimester TECHNIQUE: Real-time ultrasound of the pelvis was performed. The interpreting radiologist was not pre sent for the study. COMPARISON: None. FINDINGS: There is a single living fetus in vertex presentation. The placenta is on the maternal left. h eart rate is 133 beats per minute (bpm). The amniotic fluid index is 16.7 cm, which is normal. (5th%- 95%: 7.7-24.9 cm at 36 weeks estimated gestational age). IMPRESSION: 1. Single living fetus in vertex presentation with heart rate of 133 bpm. 2. Normal amniotic fluid index of 16.7 cm. Reviewed, dictated and finalized at location A. IMPRESSION: 1. Single living fetus in vertex presentation with heart rate of 133 bpm . 2. Normal amniotic fluid index of 16.7 cm.
--- NOTE | ~2025-04-17 | US_ITS ---
EXAMINATION: US OB limited DATE: 04/17/2025 10:46 INDICATION: Hypertension during third trimester . Assess amniotic fluid index. TECHNIQUE: Real-time ultrasound of the pelvis was performed. The interpreting radiologist was not pre sent for the study. COMPARISON: None. FINDINGS: There is a single living fetus in transverse lie with vertex to the maternal left. The placenta is l eft posterior. heart rate is 157 beats per minute (bpm). The amniotic fluid index is 13.3 cm, w hich is normal. (5th%-95%: 7.5-24.4 cm at 37 weeks estimated gestational age) . IMPRESSION: 1. Single living fetus in transverse lie with vertex to maternal left and with heart rate of 15 7 bpm. 2. Normal amniotic fluid index of 13.3 cm. Reviewed, dictated and finalized at location B. IMPRESSION: 1. Single living fetus in transverse lie with vertex to maternal left and with heart rate of 157 bpm. 2. Normal amniotic fluid index of 13.3 cm.
--- NOTE | ~2025-04-17 | US_ITS ---
EXAM: US OB BPP wo non-stress - 04/11/2025 13:00 CDT History: 30 years old Female with BPP and KENDRA for gestational hypertension Comparison: None available. Technique Real time transabdominal obstetric sonographic imaging was performed. Findings A single live intrauterine gestation is identified. Lie: longitudinal Presentation: vertex heart rate: 133 beats per minute KENDRA: 8.86 cm, which is between the 5th and 95thth percentiles. Biophysical profile: breathing movement: 2 Gross body movement: 2 tone: 2 Qualitative AFV: 2 Total BPP score: 8 of 8. Impression Total biophysical profile score is 8 out of 8. Reviewed, dictated and finalized at location A. Impression Total biophysical profile score is 8 out of 8.
[2025-04-17 09:53] VITALS: BP 128/87; PULSE 84
== END 2025-05-05 15:52 | disposition home or self-care (01) ==
LOC: ANHOBOP 09:20
PROVIDERS: Visit Provider Obstetrics & Gynecology
DX: O26.893 Other specified pregnancy related conditions, third trimester (principal); R03.0 Elevated blood-pressure reading, without diagnosis of hypertension; O13.3 Gestational [pregnancy-induced] hypertension without significant proteinuria, third trimester; Z3A.36 36 weeks gestation of pregnancy; Z3A.37 37 weeks gestation of pregnancy
CPT/HCPCS: 59025; 76815; 76819

== ENCOUNTER 2025-04-25 14:14 | Outpatient (CLI) | payer OTHER, SELFPAY ==
--- OUTSIDE RECORDS SUMMARY | 2025-04-25 14:27 | XMS_ITS | Clinical Summary ---
Author Organization [facility] Address [address] [place] [address] Care Team Providers Care Field Education Director Name Role Phone Unavailable Primary Care Provider Unavailabl e Source Comments [facility],non-owned Affiliates and Associated Physician Practices is amultiple site organization consisting of ambulatory clinics and hospital sitesin [place], [place], [place] and [place]. This disclosure is being madepursuant to the Care Everywhere program and may not contain all information available regarding this patient. Last updated 18.[facility] Allergies No known active allergies Encounters Date Type Department Care Team Description 03/23/2025 1:45 PM CDT - 03/23/2025 11:59 PM CDT Hospital Encounter [facility] Women's Health Maternal & Care [facility] [place] [address] George Ledezma MD AUTOMATIC WINDER OPERATOR Discharge Disposition: Home or Self Care from Last 3 Months Social History Tobacco Use Types Packs/Day Years Used Date Smoking Tobacco: Never Assessed Estimated Date of Delivery Comme nts Yes 05/03/2025 Based on last me nstrual period of 07/27/2024 Sex and Gender Information Value Date Recorded Sex Assigned at Not on file Legal Sex Female 5:36 AM SWEAT BAND SEWER Gender Identity Not on file Sexual Orientation Not on file Plan of Treatment Health Maintenance Due Date Last Done Comments HIV SCREENING 2009 DTAP/TDAP/TD VACCINES (1 - Tdap) 2013 HEPATITIS B VACCINE (1 of 3 - 19+ 3-dose series) 2013 PAP SMEAR 2015 COVID-19 VACCINE ( - 2023- season) 2024 07/02/2021, 06/11/2021 DEPRESSION SCREENING 10/18/2024 OB-ONE HOUR GLUCOSE 01/25/2025 OB-RHOGAM INJECTION 02/08/2025 OB-GROUP B STREP SCREEN 03/29/2025 INFLUENZA VACCINE (#1) 2025 6, 08/25/2016, 09/21/2012, Additional history exists ZOSTER VACCINE (1 of 2) 02/26/2044 HEPATITIS C SCREENING Completed 03/18/2016 OB-TDAP CURRENT Completed 2024, 05/25/2023, 09/12/2008 HIB VACCINE Aged Out No longer eligi ble based on patient's age to complete this topic HPV VACCINE Aged Out No longer eligi ble based on patient's age to complete this topic MENINGOCOCCAL (Group B) VACCINE SHARED DECISION-MAKING Aged Out No longer eligible based on patient's age to complete this topic MENINGOCOCCAL GROUPS A/C/Y/W VACCINE Aged Out No longer eligible based on patient's age to complete this topic PNEUMOCOCCAL VACCINE Aged Out No long er eligible based on patient's age to complete this topic Respiratory Syncytial Virus (RSV) Vaccine Pt: or over 60 yrs (No Doses Required) Completed Procedures Procedure Name Priority Date/Time Associated Diagnosis Comments SONOGRAM - COMPLETE Routine 03/23/2025 1 :44 PM CDT Encounter for ultrasound to assess growth (HCC) History of delivery, currently ([facility]) Encounter for follow-up ultrasound of anatomy ([facility]) 33 weeks gestation of ([facility]) from Last 3 Months Results * SONOGRAM - COMPLETE (03/23/2025 1:44 PM CDT) Linked Results Indication ======== Third trimester growth Crohn's Disease History ====== OB History 3. Para 1 [id number] 1. miscarriage 2021 2. live 2022. Gest. age 39 w + 0 d. Weight 3,373 g. Sex of child: male. Details: delivery Lab Tests Test Date Result NIPT Low risk, Male Maternal Assessment Physical Exam Height 160 cm, 5 ft 3 in. Weight 73 kg, 161 lb. Initial weight 65 kg, 143 lb. BMI 28.52 kg/m . Initial BMI 25.33 kg/m . Weight gain 8 kg, 18 lb Method ====== Transabdominal ultrasound. View: Suboptimal view: limited by late gestational age ========= [place] . Number of fetuses: 1 Dating ====== Date Details Gest. age MINGO LMP 07/27/2024 34 w + 1 d 05/03/2025 U/S 03/23/2025 based upon AC, BPD, Femur, HC 35 w + 4 d 04/23/2025 Assigned dating based on the LMP, selected on 03/23/2025 34 w + 1 d 05/03/2025 General Evaluation Cardiac activity present. FHR 139 bpm. Presentation: cephalic Placenta: Placental site: posterior; fundal Umbilical cord: Cord vessels: 3 vessel cord. Insertion site: normal insertion Amniotic fluid: Amount of AF: normal. MVP 6.6 cm. KENDRA 19.3 cm. Q1 4.9 cm, Q2 2.8 cm, Q3 6.6 cm, Q4 5.0 cm Biometry BPD 87.7 mm 35w 3d 82% Hadlock HC 317.4 mm 35w 5d 54% Hadlock AC 323.9 mm 36w 2d 96% Hadlock Femur 68.2 mm 35w 0d 65% Hadlock Humerus 59.6 mm 34w 4d 73% Padmini HC / AC 0.98 -/- Hadlock Weight Calculation: EFW 2,776 g 88% Hadlock EFW (lb,oz) 6 lb 2 oz EFW by Hadlock ([id number]) overall normal range, but the AC is >90% Growth Overview Exam date GA BPD (mm) HC (mm) AC (mm) FL (mm) HL (mm) EFW (g) 03/23/2025 34w 1d 87.7 82% 317.4 54% 323.9 96% 68.2 65% 59.6 73% 2776 88% Anatomy The following structures appear normal: Head / Neck Cranium. Midline falx. Cavum septi pellucidi. Thalami. Face Nasal bone. Orbits. Heart / Thorax Situs. Diaphragm. Abdomen Stomach. Kidneys. Bladder. Extremities / Skeleton Arms. The following structures could not be adequately visualized: Head / Neck Lateral ventricles. Choroid plexus. Cerebellum. Cisterna magna. Face Lips. Profile. Nose. Heart / Thorax 4-chamber view. RVOT view. LVOT view. 3-vessel view. 4-agedbg-wsmjbtf view. Aortic arch view. Bicaval view. Ductal arch view. Great vessels. Right lung. Left lung. Abdomen Cord insertion. Bowel. Genitals. Spine Cervical spine. Thoracic spine. Lumbar spine. Sacral spine. Extremities / Skeleton Hands. Legs. Feet. Maternal Structures Right Ovary Not visualized Appearance: Adnexa appears normal Left Ovary Not visualized Appearance: Adnexa appears normal Impression ========= Single, live, intrauterine at 34w 1d Appropriate size but trending LGA given AC >90%ile Amniotic fluid volume: normal No major malformations were seen within the limitations of today's ultrasound Incomplete anatomic survey due to position and late gestational age Comment ======== ultrasound alone cannot detect all structural, genetic, or functional , placental, or maternal abnormalities Follow-up ======== Follow up ultrasound in 4 weeks for growth assessment Coding ====== Procedures 36719: US Preg Uterus Detailed Svbtle PACS Anatomical Region Laterality Modality Other 03/23/2025 1:44 PM CDT Arsenio Avalos MD [facility] ORDERABLES Edited Result - Final from Last 3 Months Insurance [facility] [facility]
--- OUTSIDE RECORDS SUMMARY | 2025-04-25 14:27 | XMS_ITS | Encounter Summary ---
Author Organization [facility] Address [address] [place] [address] Care Team Providers Care Claim Manager Name Role Phone Unavailable Primary Care Provider Unavailabl e Encounter Details Date Type Department Care Team (Late st Contact Info) Description 05/27/2004 Outpatient Historical [facility] Primary Care - [address] [place] [phone] Anna Brownlee MD NO ADDRESS ON FILE Social History Tobacco Use Types Packs/Day Years Used Date Smoking Tobacco: Never Assessed Comments Unknown Sex and Gender Information Value Date Recorded Sex Assigned at Not on file Legal Sex Female 2:54 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
--- OUTSIDE RECORDS SUMMARY | 2025-04-25 14:27 | XMS_ITS | Encounter Summary ---
Author Organization [facility] Address [address] [place] [address] Care Team Providers Care Hr Intern Name Role Phone Unavailable Primary Care Provider Unavailabl e Encounter Details Date Type Department Care Team (Late st Contact Info) Description 05/11/2001 Outpatient Historical [facility] Primary Care - [address] [place] [phone] Scar Montalvo, DO NO ADDRESS ON FILE Social History Tobacco Use Types Packs/Day Years Used Date Smoking Tobacco: Never Assessed Comments Unknown Sex and Gender Information Value Date Recorded Sex Assigned at Not on file Legal Sex Female 2:54 AM METALLURGICAL TECHNICIAN Gender Identity Not on file Sexual Orientation Not on file documented as of this encounter Plan of Treatment Not on file documented as of this encounter Visit Diagnoses Not on filedocumented in this encounter
--- OUTSIDE RECORDS SUMMARY | 2025-04-25 14:27 | XMS_ITS | Encounter Summary ---
Author Organization [facility] Address [address] [place] [address] Care Team Providers Care Paper Machine Supervisor Name Role Phone Unavailable Primary Care Provider Unavailabl e Encounter Details Date Type Department Care Team (Late st Contact Info) Description 03/18/1999 Outpatient Historical [facility] Teodoro Castillo MD [address] [place] [address] Social History Tobacco Use Types Packs/Day Years Used Date Smoking Tobacco: Never Assessed Comments Unknown Sex and Gender Information Value Date Recorded Sex Assigned at Not on file Legal Sex Female 2:54 AM PROTECTION SPECIALIST Gender Identity Not on file Sexual Orientation Not on file documented as of this encounter Plan of Treatment Not on file documented as of this encounter Visit Diagnoses Not on filedocumented in this encounter
--- OUTSIDE RECORDS SUMMARY | 2025-04-25 14:27 | XMS_ITS | Clinical Summary ---
Author Organization [employer] [facility] on Address [address] [place] [address] Phone Care Team Providers Care Waste Hand Name Role Phone Unavailable Primary Care Provider Unavailabl e Encounters Date Type Department Care Team Description 04/17/2025 External Device Data STL ABSTRACTION Provider, Abstract from Last 3 Months Social History Tobacco Use Types Packs/Day Years Used Date Smoking Tobacco: Never Assessed Comments Unknown Sex and Gender Information Value Date Recorded Sex Assigned at Not on file Legal Sex Female 2:54 AM HAND UMBRELLA TIPPER Gender Identity Not on file Sexual Orientation Not on file Plan of Treatment Health Maintenance Due Date Last Done Comments DTAP/TDAP/TD VACCINES (1 - Tdap) 2013 HEPATITIS B VACCINES (1 of 3 - 19+ 3-dose series) 2013 HPV/Cotest (21-29) 2015 CERVICAL CANCER SCREENING 02/26/2024 HPV/Cotest (30-65) 02/26/2024 PAP SMEAR 02/26/2024 INFLUENZA VACCINE (#1) 2025 08/25/2016 HPV VACCINES Aged Out No longer eligi ble based on patient's age to complete this topic Insurance [facility] [id number] POS II
--- OUTSIDE RECORDS SUMMARY | 2025-04-25 14:27 | XMS_ITS | Encounter Summary ---
Author Organization [facility] Address [address] [place] [address] Care Team Providers Care Chemical Production Technician Name Role Phone Unavailable Primary Care Provider Unavailabl e Encounter Details Date Type Department Care Team (Late st Contact Info) Description 02/18/2004 Outpatient Historical [facility] Primary Care - [address] [place] [phone] Anna Brownlee MD NO ADDRESS ON FILE Social History Tobacco Use Types Packs/Day Years Used Date Smoking Tobacco: Never Assessed Comments Unknown Sex and Gender Information Value Date Recorded Sex Assigned at Not on file Legal Sex Female 2:54 AM MONEY ORDER CLERK Gender Identity Not on file Sexual Orientation Not on file documented as of this encounter Plan of Treatment Not on file documented as of this encounter Visit Diagnoses Not on filedocumented in this encounter
--- OUTSIDE RECORDS SUMMARY | 2025-04-25 14:27 | XMS_ITS | Encounter Summary ---
Author Organization [facility] Address [address] [place] [address] Care Team Providers Care Analog Ic Design Engineer Name Role Phone Unavailable Primary Care Provider Unavailabl e Encounter Details Date Type Department Care Team (Late st Contact Info) Description 07/29/2006 Outpatient Historical [facility] Primary Care - [address] [place] [phone] Anna Brownlee MD NO ADDRESS ON FILE Social History Tobacco Use Types Packs/Day Years Used Date Smoking Tobacco: Never Assessed Comments Unknown Sex and Gender Information Value Date Recorded Sex Assigned at Not on file Legal Sex Female 2:54 AM CHILD SUPPORT AGENT Gender Identity Not on file Sexual Orientation Not on file documented as of this encounter Plan of Treatment Not on file documented as of this encounter Visit Diagnoses Not on filedocumented in this encounter
--- OUTSIDE RECORDS SUMMARY | 2025-04-25 14:27 | XMS_ITS | Encounter Summary ---
Author Organization [facility] Address [address] [place] [address] Care Team Providers Care Wireless Architect Name Role Phone Unavailable Primary Care Provider Unavailabl e Encounter Details Date Type Department Care Team (Late st Contact Info) Description 04/11/2003 Outpatient Historical [facility] Primary Care - [address] [place] [phone] Scar Montalvo, DO NO ADDRESS ON FILE Social History Tobacco Use Types Packs/Day Years Used Date Smoking Tobacco: Never Assessed Comments Unknown Sex and Gender Information Value Date Recorded Sex Assigned at Not on file Legal Sex Female 2:54 AM WATER AND SEWER SYSTEMS SUPERVISOR Gender Identity Not on file Sexual Orientation Not on file documented as of this encounter Plan of Treatment Not on file documented as of this encounter Visit Diagnoses Not on filedocumented in this encounter
--- OUTSIDE RECORDS SUMMARY | 2025-04-25 14:27 | XMS_ITS | Encounter Summary ---
Author Organization [facility] Address [address] [place] [address] Care Team Providers Care Quantitative Associate Name Role Phone Unavailable Primary Care Provider Unavailabl e Encounter Details Date Type Department Care Team (Late st Contact Info) Description 02/08/2006 Outpatient Historical [facility] Primary Care - [address] [place] [phone] Anna Brownlee MD NO ADDRESS ON FILE Social History Tobacco Use Types Packs/Day Years Used Date Smoking Tobacco: Never Assessed Comments Unknown Sex and Gender Information Value Date Recorded Sex Assigned at Not on file Legal Sex Female 2:54 AM HELPER SHEAR OPERATOR Gender Identity Not on file Sexual Orientation Not on file documented as of this encounter Plan of Treatment Not on file documented as of this encounter Visit Diagnoses Not on filedocumented in this encounter
--- OUTSIDE RECORDS SUMMARY | 2025-04-25 14:27 | XMS_ITS | Encounter Summary ---
Author Organization [facility] Address [address] [place] [address] Care Team Providers Care Honest John Rocket Crew Member Name Role Phone Unavailable Primary Care Provider Unavailabl e Encounter Details Date Type Department Care Team (Late st Contact Info) Description 07/27/2001 Outpatient Historical [facility] Primary Care - [address] [place] [phone] Scar Montalvo, DO NO ADDRESS ON FILE Social History Tobacco Use Types Packs/Day Years Used Date Smoking Tobacco: Never Assessed Comments Unknown Sex and Gender Information Value Date Recorded Sex Assigned at Not on file Legal Sex Female 2:54 AM CLIENT CARE REPRESENTATIVE Gender Identity Not on file Sexual Orientation Not on file documented as of this encounter Plan of Treatment Not on file documented as of this encounter Visit Diagnoses Not on filedocumented in this encounter
--- OUTSIDE RECORDS SUMMARY | 2025-04-25 14:27 | XMS_ITS | Encounter Summary ---
Author Organization [facility] Address [address] [place] [address] Care Team Providers Care Environmental Science Program Director Name Role Phone Unavailable Primary Care Provider Unavailabl e Encounter Details Date Type Department Care Team (Late st Contact Info) Description 05/04/2001 Outpatient Historical [facility] Primary Care - [address] [place] [phone] Scar Montalvo, DO NO ADDRESS ON FILE Social History Tobacco Use Types Packs/Day Years Used Date Smoking Tobacco: Never Assessed Comments Unknown Sex and Gender Information Value Date Recorded Sex Assigned at Not on file Legal Sex Female 2:54 AM CHIEF COMPLIANCE OFFICER Gender Identity Not on file Sexual Orientation Not on file documented as of this encounter Plan of Treatment Not on file documented as of this encounter Visit Diagnoses Not on filedocumented in this encounter
[2025-04-25 14:50] LABS: Hematocrit 38.5 % (37.0-47.0); Hemoglobin 13.4 g/dL (12.0-15.0); Mean Corpuscular HGB Conc 34.8 g/dl (32-36); Mean Corpuscular Hemoglobin 33.9 pg (26-34); Mean Corpuscular Volume 97.5 fl (80-100); Platelet Count Result 178 k/mm3 (150-375); Red Blood Count 3.95 M/mm3 (4.2-5.4); White Blood Count 8.5 K/mm3 (4.5-10.0)
[2025-04-25 16:00] LABS: Syphilis IgG/IgM Antibody Non-Reactive (Nonreactive)
== END 2025-04-25 14:15 | disposition home or self-care (01) ==
LOC: ANHLAB 14:16
PROVIDERS: Visit Provider Obstetrics & Gynecology
DX: Z01.818 Encounter for other preprocedural examination (principal)
CPT/HCPCS: 36415; 85027; 86593; 86850; 86900; 86901

== ENCOUNTER 2025-04-26 05:36 | Inpatient (IN) | payer OTHER, SELFPAY ==
[2025-04-26] VITALS (57 sets, daily range): BP systolic 84–148; BP diastolic 38–114; PULSE 60–146; RESP 16–18; TEMP 35.9–36.9; O2SAT 98–100; BMI 29.8
--- OUTSIDE RECORDS SUMMARY | 2025-04-26 05:42 | XMS_ITS | Encounter Summary ---
Author Organization [facility] Address [address] [place] [address] Care Team Providers Care Server Software Engineer Name Role Phone Unavailable Primary Care Provider Unavailabl e Encounter Details Date Type Department Care Team (Late st Contact Info) Description 05/11/[address] [facility] Primary Care - [address] [place] [phone] Scar Montalvo, DO NO ADDRESS ON FILE Social History Tobacco Use Types Packs/Day Years Used Date Smoking Tobacco: Never Assessed Comments Unknown Sex and Gender Information Value Date Recorded Sex Assigned at Not on file Legal Sex Female 2:54 AM TECHNICIAN AUTOMATIC Gender Identity Not on file Sexual Orientation Not on file documented as of this encounter Plan of Treatment Not on file documented as of this encounter Visit Diagnoses Not on filedocumented in this encounter
--- OUTSIDE RECORDS SUMMARY | 2025-04-26 05:42 | XMS_ITS | Encounter Summary ---
Author Organization [facility] Address 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
--- OUTSIDE RECORDS SUMMARY | 2025-04-26 05:42 | XMS_ITS | Encounter Summary ---
Author Organization [facility] Address 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
--- OUTSIDE RECORDS SUMMARY | 2025-04-26 05:42 | XMS_ITS | Encounter Summary ---
Author Organization [facility] Address 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
--- OUTSIDE RECORDS SUMMARY | 2025-04-26 05:42 | XMS_ITS | Encounter Summary ---
Author Organization [facility] Address 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
--- OUTSIDE RECORDS SUMMARY | 2025-04-26 05:42 | XMS_ITS | Clinical Summary ---
Author Organization [facility] Address [address] [place] [address] Care Team Providers Care Editorial Manager Name Role Phone Unavailable Primary Care Provider Unavailabl e Source Comments [facility],non-owned Affiliates and Associated Physician Practices is amultiple site organization consisting of ambulatory clinics and hospital sitesin [place], [place], [place] and [place]. This disclosure is being madepursuant to the Care Everywhere program and may not contain all information available regarding this patient. Last updated 18.[facility] Allergies No known active allergies Encounters Date Type Department Care Team Description 03/23/2025 1:45 PM CDT - 03/23/2025 11:59 PM CDT Hospital Encounter [facility] Women's Health Maternal & Care [address] [place] [address] George Ledezma MD CINDER PIT CRANE OPERATOR Discharge Disposition: Home or Self Care from Last 3 Months Social History Tobacco Use Types Packs/Day Years Used Date Smoking Tobacco: Never Assessed Estimated Date of Delivery Comme nts Yes 05/03/2025 Based on last me nstrual period of 07/27/2024 Sex and Gender Information Value Date Recorded Sex Assigned at Not on file Legal Sex Female 5:36 AM 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 AND FABRIC 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 Gender Identity Not on file Sexual Orientation Not on file Plan of Treatment Health Maintenance Due Date Last Done Comments HIV SCREENING 2009 DTAP/TDAP/TD VACCINES (1 - Tdap) 2013 HEPATITIS B VACCINE (1 of 3 - 19+ 3-dose series) 2013 PAP SMEAR 2015 HPV VACCINE (1 - 3-dose SCDM series) 2021 COVID-19 VACCINE (2023- season) 2024 07/02/2021, 06/11/2021 DEPRESSION SCREENING 10/18/2024 [...] assess growth (HCC) History of delivery, currently ([facility]) Encounter for follow-up ultrasound of anatomy ([facility]) 33 weeks gestation of ([facility]) from Last 3 Months Results * SONOGRAM [...] 6 lb 2 oz EFW by Hadlock ([id number]) overall normal range, but the AC is [...] view. RVOT view. LVOT view. 3-vessel view. 2-tebpwt-ebnzuup view. Aortic arch view. Bicaval view. Ductal [...] weeks for growth assessment Coding ====== Procedures 34237: US Preg Uterus Detailed [facility] ReelSurfer PACS Anatomical Region Laterality Modality Other 03/23/2025 1:44 PM CDT Arsenio Avalos MD [facility] ORDERABLES Edited Result - Final from Last 3 Months Insurance [facility]
--- OUTSIDE RECORDS SUMMARY | 2025-04-26 05:42 | XMS_ITS | Encounter Summary ---
Author Organization [facility] Address 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
--- OUTSIDE RECORDS SUMMARY | 2025-04-26 05:42 | XMS_ITS | Encounter Summary ---
Author Organization [facility] Address 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
--- OUTSIDE RECORDS SUMMARY | 2025-04-26 05:42 | XMS_ITS | Encounter Summary ---
Author Organization [facility] Address [address] [place] [address] Care Team Providers Care Branch Service Representative Name Role Phone Unavailable Primary Care Provider Unavailabl e Encounter Details Date Type Department Care Team (Late st Contact Info) Description 05/27/2004 Outpatient Historical [facility] Primary Care - [address] [place] [phone] Anna Brownlee MD NO ADDRESS ON FILE Social History Tobacco Use Types Packs/Day Years Used Date Smoking Tobacco: Never Assessed Comments Unknown Sex and Gender Information Value Date Recorded Sex Assigned at Not on file Legal Sex Female 2:54 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
--- OUTSIDE RECORDS SUMMARY | 2025-04-26 05:42 | XMS_ITS | Clinical Summary ---
Author Organization [facility] [email or web address] [facility] on Address [address] [place] [address] Phone Care Team Providers Care Animal Shelter Worker Name Role Phone Unavailable Primary Care Provider Unavailabl e Encounters Date Type Department Care Team Description 04/17/2025 External Device Data STL ABSTRACTION Provider, Abstract from Last 3 Months Social History Tobacco Use Types Packs/Day Years Used Date Smoking Tobacco: Never Assessed Comments Unknown Sex and Gender Information Value Date Recorded Sex Assigned at Not on file Legal Sex Female 2:54 AM DERRICK BOAT LEVER OPERATOR Gender Identity Not on file Sexual [...] patient's age to complete this topic Insurance [facility] [place] [id number] POS II
--- OUTSIDE RECORDS SUMMARY | 2025-04-26 05:42 | XMS_ITS | Encounter Summary ---
Author Organization [facility] Address 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
[2025-04-26] MEDS: ACETAMINOPHEN 500 MG TABLET 1000 MG PO ×4 (06:52→23:30)
[2025-04-26] MEDS: LACTATED RINGERS 1,000 ML 125 ML IV CONT (06:54)
--- NOTE | 2025-04-26 07:28 | WPDOBADMIT ---
Obstetrics - Admit Note Admission Note: record reviewed. No pertinent additions to the history and/or any subsequent changes in the physical findings that are not consistent with the expected course of the were found. Additions to the history and/or subsequent changes in the physical findings follow. None.
--- NOTE | 2025-04-26 07:28 | PM.IMHP ---
H&P: HPI History of Present Illness Date/Time: 04/26/25 07:28 Chief Complaint: Elective repeat section Narrative: 30 y/o at 39 weeks admitted for elective repeat section. PNC significant possible chronic hypertension, she had 2 increased bp prior to 20 weeks. No increase bp after that. Normal surveillance testing. Has had unstable lie. Ultrasound at bedside today confirmed cephalic presentation. Review of Systems Review of Systems: All systems reviewed & are unremarkable except as noted in HPI and below Constitutional: Constitutional: Reports no additional constitutional complaints and Denies headache(s) Eyes: Eyes: Denies spots in vision ENT: Reports system reviewed and no additional complaints, except as documented and Denies headache(s) Cardiovascular: Cardiovascular: Denies chest pain and Denies dyspnea Respiratory: Respiratory: Denies dyspnea Gastrointestinal: Gastrointestinal: Reports no additional gastrointestinal complaints Genitourinary: Genitourinary: Reports amenorrhea Musculoskeletal: Musculoskeletal: Reports no additional musculoskeletal complaints Integumentary/Breasts: Skin/Breast: Denies breast mass and Denies rash Neurologic: Denies headache(s) Psychiatric: Psychiatric: Reports no additional psychiatric complaints [facility] Past Medical History Medical History Overweight (BMI 25.0-29.9) Crohn's colitis Family History Family History Other Alcohol abuse Cerebrovascular accident Depression Diabetes mellitus Hypertension Social History Social History Social History: never Smoking status: Never smoker Second hand tobacco smoke exposure: No Alcohol intake: former Alcohol use details: none Substance use: never Do You Feel Safe in your Home?: Yes Lack of Transportation: No Lack of Food: Never True Current Housing: I Have Housing Concerned About Future Housing: No Difficulty Paying Gas/Electric Bills: No Difficulty Paying for Meds: No Currently Unemployed: No Education: High School Diploma/GED Difficulty w/ Childcare or Family Care: No Living arrangements: with family Occupation/Education: occupation Gender identity (if verbalized by the patient): Female Sexual Orientation (if Verbalized by the Patient): Straight or Heterosexual Spiritual care concerns: No Meds Home Medications and Allergies Home Medications ?Medication ?Instructions ?Recorded ?Confirmed ?Type vits 75-iron 28 mg-folic pkg PO 09/14/22 04/11/25 History acid 800 mcg-omega-3 oral combo pack (One A Day Women's DHA) Allergies Allergy/AdvReac Type Severity Reaction Status Date / Time No Known Allergies Allergy Verified 04/26/25 06:20 Vital Signs Vital Signs - 24 hr 04/26/25 06:06 04/26/25 06:15 04/26/25 06:23 Temperature Pulse Rate 71 87 Blood Pressure 126/79 113/73 Oxygen Delivery Room Air 04/26/25 06:30 04/26/25 06:46 04/26/25 06:52 Temperature 97.2 F L Pulse Rate 81 74 Blood Pressure 127/81 104/55 L Oxygen Delivery 04/26/25 07:01 Temperature Pulse Rate 60 Blood Pressure 93/61 L Oxygen Delivery Exam Const: General: no acute distress Eyes: General: appearance normal, both eyes and all related structures Resp: Effort & Inspection: normal respiratory effort Cardio: Rate: regular rate GI: Other: Gravid no fundal tenderness no right upper quadrant pain Skin: General skin exam: no rashes or lesions noted Neuro: Cognition (Neuro): normal cognition Extrem: General: normal to inspection Psych: Mental Status: mental status grossly normal Assessment and Plan Assessment and plan (1) Delivery by elective section: Code(s): O82 - Encounter for delivery without indication Status: Acute Assessment and Plan: Questions answered. She agrees to proceed with repeat section.
--- NOTE | 2025-04-26 07:30 | P.PNAN_ITS ---
Anes - Initial Pre Proc Eval Procedure: Operation Date: 04/26/25 07:30 Proposed Procedures p Repeat Section - Arsenio Mathew MD Date/Time: 04/26/25 07:30 Surgeon: Arsenio Mathew MD Pre Op Diagnosis: C/Section Patient Data Age: 30 Gender: F Height: 1.57 m Weight: 74 kg Last Vital Signs Temp 97.2 F L 04/26/25 06:52 Pulse 60 04/26/25 07:01 BP 93/61 L 04/26/25 07:01 O2 Del Method Room Air 04/26/25 06:23 Allergies Allergy/AdvReac Type Severity Reaction Status Date / Time No Known Allergies Allergy Verified 04/26/25 06:20 Home Medications ?Medication ?Instructions ?Recorded ?Confirmed ?Type vits 75-iron 28 mg-folic pkg PO 09/14/22 04/11/25 History acid 800 mcg-omega-3 oral combo pack (One A Day Women's DHA) Patient hx anesthesia problems: none Family hx anesthesia problems: none Results Review: All pre-operative results and documents have been reviewed as part of the pre- operative evaluation. [facility] Past Medical History Medical History Overweight (BMI 25.0-29.9) Crohn's colitis Family History Family History Other Alcohol abuse Cerebrovascular accident Depression Diabetes mellitus Hypertension Social History Social History Social History: never Smoking status: Never smoker Second hand tobacco smoke exposure: No Alcohol intake: former Alcohol use details: none Substance use: never Do You Feel Safe in your Home?: Yes Lack of Transportation: No Lack of Food: Never True Current Housing: I Have Housing Concerned About Future Housing: No Difficulty Paying Gas/Electric Bills: No Difficulty Paying for Meds: No Currently Unemployed: No Education: High School Diploma/GED Difficulty w/ Childcare or Family Care: No Living arrangements: with family Occupation/Education: occupation Gender identity (if verbalized by the patient): Female Sexual Orientation (if Verbalized by the Patient): Straight or Heterosexual Spiritual care concerns: No Anes - Eval Final PreProcedure Day of Procedure 04/26/25 07:30 Patient weight: overweight Lungs: normal air movement Airway: Mallampati scale class II Neurological: alert and oriented Last oral intake: >/= 8 hours ASA classification: II Emergent: no Anesthetic plan: proceed Anesthesia type and monitoring: regional spinal and standard monitoring Results Review: All pre-operative results and documents have been reviewed as part of the pre- operative evaluation. BMI 30, plts 178. Informed Consent: The patient's anesthetic plan and its attendant risks and benefits were discussed with the patient/family/POA. Questions were solicited and answers provided to the satisfaction of the patient/family/POA.
[2025-04-26] MEDS: OXYTOCIN 30 UNITS/NS 500 ML 30 UNITS/500 ML BAG 125 UNITS IV CONT (10:49)
--- NOTE | 2025-04-26 11:44 | OBPPTRN ---
Patient transferred to post room #284 via stretcher. Support person- spouse present. Oriented to unit, room, information board, rooming in, admission packet and security measures. Patient verbalizes understanding.
[2025-04-26] MEDS: SIMETHICONE 80 MG TAB.CHEW PO ×2 (12:28→16:15)
[2025-04-26] MEDS: KETOROLAC 15 MG/ML VIAL (*BKC) IV PUSH ×3 (12:28→23:30)
[2025-04-26] MEDS: LIDOCAINE 5% PATCH 1 PATCH TRANSDERM (12:28)
--- NOTE | 2025-04-26 12:37 | W.PM.PROC2 ---
Procedure Note - Detailed Date of Procedure 04/26/25 Pre-op Diagnosis C/Section Elective repeat Post-op Diagnosis Same Procedure Performed repeat low-transverse section Surgeon Arsenio Mathew MD Anesthesia Spinal Indications prior section for failure to progress she has elected for repeat section. Findings Female vertex normal uterus and fallopian tubes and ovaries. After informed consent, risks and benefits of the procedure was discussed with the patient. The patient was taken to the operating room where she was placed in the dorsal lithotomy position with leftward tilt. After the prior placed epidural anesthesia was found to be adequate, she was then prepped and draped in the usual sterile fashion. A Pfannenstiel skin incision was made with a scalpel and carried through to the underlying layer of fascia. The fascia was then nicked in the midline, extending bilaterally. The fascia was dissected off the rectus muscles bluntly and sharply, superiorly and inferiorly. The rectus muscles were in the midline, and peritoneum was identified and entered bluntly. The pelvic organs were visualized. The bladder blade was then inserted. The vesicouterine peritoneum was noted to be displaced well below the area of the incision.The low transverse uterine incision was then made with the scalpel and extended with bilateral index fingers in a crescent-shaped fashion. The head was delivered and the rest of the was delivered. The loose nuchal cord was manually reduced. The nose and mouth suctioned. The cord was clamped twice and cut. The was then handed off to the awaiting pediatric staff. The placenta was then delivered manually. The uterine cavity was sponge curetted. The uterus was then exteriorized. The uterine incision was then closed with 0 vicryl in a running locked fashion. A second layer of 0 vicryl was used in an imbricating fashion for hemostasis. posterior cul-de-sac was irrigated and cleared of debris. The uterus was then returned to the abdomen. Bilateral gutters were cleared off all clots and debris. The uterine incision was noted to be hemostatic. Interceed placed on uterine incision and vertically on front of uterus. The muscle bellies were inspected and noted to be hemostatic. The peritoneum was approximated with 3-0 Vicryl. The subfascial layer was noted to be hemostatic, and the fascia was closed with 0 Vicryl in a running fashion X2 sutures. The subcutaneous layer was then approximated with 3-0 Vicryl in a subcutaneous fashion. The skin was closed with 4-0 Vicryl on a Keif needle. Dermabond applied at incision. All instruments, needle, and lap counts were correct x3. The patient was taken to the recovery room in stable condition. Description of Procedure Female infant, [id number], apgars 8,9 Estimated Blood Loss 645 Drains No Packing No Pathology None sent Complications No immediate complications Condition Stable Disposition PACU
--- NOTE | 2025-04-26 12:55 | PC.NURSE ---
Consulted with patient to assess needs related to . Discussed with mother her successes, concerns and any questions she has. Per mother she exclusively pumped and bottle fed her first and had history of oversupply, with this baby she would like to breastfeed and pump/bottle if needed. Mother did bring her own Spectra Breast pump if she needs it. We reviewed working with the infant, supporting breast, protecting her nipples with an optimal deep latch, good positioning, and good hand washing. Encouraged understanding the benefits of skin to skin, responding to feeding cues, frequencies of feeding 8-12 times in 24 hours (approximately 2-3 hours), duration of feedings, milk production, intake/output feeding sheet and signs of adequate intake encouraging swallowing at the breast. Reviewed positioning and alignment, supporting breast, off-centered (asymmetrical latch) and leading with the chin with big, open, wide gape. Infant latched optimally to the [left] breast in [cross cradle] position. Education given to the mother of how to visualize the suckling (with good rocking jaw motion) swallows (dropping of the lower jaw) and how to listen for drinking at the breast (the ka sound). The was [able] to maintain latch without discomfort to mother. Nipple care reviewed with optimal latch, good positioning and using clean hands when touching her breast. Resources used to facilitate learning were used from the [visual handouts/ tool/mom and baby guide]. Mother voiced understanding of the education shared, to call for assistance if the does not latch or if there is discomfort with . Reported to the Primary RN.
[2025-04-26] MEDS: KCL 20 MEQ/D5/0.45% SOD CHL 1,000 ML 125 ML IV CONT (15:20)
[2025-04-26] MEDS: DOCUSATE SODIUM 100 MG CAPSULE PO (16:15)
[2025-04-27 01:16] VITALS: BP 103/50; PULSE 66; RESP 20; TEMP 36.8; O2SAT 100
[2025-04-27 05:08] LABS: Hematocrit 26.7 % (37.0-47.0); Hemoglobin 9.2 g/dL (12.0-15.0); Immature Granulocyte Percent A 0.5 % (0-0.5); Lymphocytes Absolute Auto 1.64 K/mm3 (0.9-3.2); Mean Corpuscular HGB Conc 34.5 g/dl (32-36); Mean Corpuscular Hemoglobin 35.0 pg (26-34); Mean Corpuscular Volume 101.5 fl (80-100); Nucleated Red Blood Cells Absolute Auto 0.000 K/mm3 (0.0-0.012); Nucleated Red Blood Cells Perc 0.0 % (0.0-0.2); Platelet Count Result 152 k/mm3 (150-375); Red Blood Count 2.63 M/mm3 (4.2-5.4); White Blood Count 10.9 K/mm3 (4.5-10.0)
[2025-04-27] MEDS: ACETAMINOPHEN 500 MG TABLET 1000 MG PO ×4 (05:20→23:49)
[2025-04-27] MEDS: IBUPROFEN 600 MG TABLET PO ×4 (05:20→23:48)
--- NOTE | 2025-04-27 07:44 | P.PNOB_ITS ---
OB - PN: Subj Subjective Date/time seen: 04/27/25 07:44 Interval history: She has tolerated regular diet, she has had flatus, denies leg pain or SOB or CP, denies lightheadedness or dizziness. Patient comments: pain well controlled feeding status: breast and bottle feeding (pumping) OB - PN: Obj Data Labs 04/27/25 03:41 Labs: Laboratory Results - last 24 hr 04/27/25 03:41 WBC 10.9 H RBC 2.63 L Hgb 9.2 L D Hct 26.7 L MCV 101.5 H MCH 35.0 H MCHC 34.5 RDW 12.8 Plt Count 152 MPV 10.7 H Immature Gran % (Auto) 0.5 Neut % (Auto) 77.2 H Lymph % (Auto) 15.0 L [place] % (Auto) 6.6 Eos % (Auto) 0.4 Baso % (Auto) 0.3 Lymph # (Auto) 1.64 [place] # (Auto) 0.7 H Eos # (Auto) 0.0 Baso # (Auto) 0.0 Abs Immat Gran (auto) 0.05 H Absolute Neuts (auto) 8.4 H Absolute Nucleated RBC 0.000 Nucleated RBC % 0.0 OB - PN A/P Assessment and Plan (1) Delivery by elective section: Code(s): O82 - Encounter for delivery without indication Status: Acute Assessment and Plan: POD1. Doing well. Asymptomatic anemia. Continue oral iron therapy. Mild soiling of dressing, removed, will apply abd pad and monitor. Plan Comments: Routine post op care. Time Spent With Patient Time: Total time spent is greater than 50% in coordination of care (as documented) at patient's floor/unit and/or counseling patient: Exam 2 Const: General: comfortable and no acute distress Resp: Effort & Inspection: normal respiratory effort GI: Other: incision intact, the initial dressing mild soiling center, dressing removed, no drainage intact Neuro: General: patient oriented x3 Extrem: General: normal to inspection, no pedal edema and no calf tenderness Psych: Mental Status: mental status grossly normal
[2025-04-27] MEDS: SIMETHICONE 80 MG TAB.CHEW PO ×3 (07:45→17:32)
[2025-04-27] MEDS: DOCUSATE SODIUM 100 MG CAPSULE PO ×2 (07:45→17:32)
[2025-04-27] MEDS: MULTIVIT/MIN/PREN/FOL AC/IRON TABLET 1 TAB PO (07:45)
[2025-04-27 08:05] VITALS: BP 111/72; PULSE 69; RESP 18; TEMP 36.8; O2SAT 100
--- NOTE | 2025-04-27 12:59 | WPDANLDNPN2 ---
Anes-Prog Note L&D-Neuraxial Date/Time: 04/27/25 12:59 Neuraxial medications: intrathecal PF morphine Opiod-related complaints: none Patient feedback: Patient satisfied with post-operative pain management.
--- NOTE | 2025-04-27 12:59 | WPDANLDPN2 ---
Anes-Prog Note L&D Date/Time: 04/27/25 12:59 Comfortable throughout: section Neuraxial method: spinal Epidural/Spinal procedure site: clean & non-tender Neuro status: Neuro function grossly intact. Cardiovascular status: normal Respiratory status: normal Airway patency: baseline Mental status: baseline Post-Op hydration status: normal Vital Signs: Last Vital Signs Temp 36.8 C 04/27/25 08:05 Pulse 69 04/27/25 08:05 Resp 18 04/27/25 08:05 BP 111/72 04/27/25 08:05 Pulse Ox 100 04/27/25 08:05 O2 Del Method Room Air 04/26/25 19:10 Pain score (VAS): 1 I/O: Intake & Output 04/26/25 04/27/25 04/27/25 23:59 07:59 15:59 Intake Total 240 0 Output Total 1400 1900 Balance -1160 -1900 0 Post-procedural complaints: none Patient feedback: Patient satisfied with anesthetic care.
--- NOTE | 2025-04-27 17:10 | PC.NURSE ---
1630. Observed mother latching to the [left & right] breast in [cross cradle] position. Infant [was] able to maintain an appropriate latch. Mother [declines nipple pain/discomfort [throughout feeding]. Encouraged mother to keep awake and nursing at the breast for as long as baby desires. Mother taught to listen for infant swallowing during feedings. Reviewed using the blue feeding sheet to record time and duration of feeding. Mother voiced understanding of the education shared, to call for assistance if the does not latch or if there is discomfort with . name/number on communication board. Reported to the Primary RN.?
[2025-04-27 20:55] VITALS: BP 111/82; PULSE 64; RESP 16; TEMP 36.8; O2SAT 100
[2025-04-28 00:35] VITALS: BP 137/72; PULSE 77; RESP 18
[2025-04-28 04:00] VITALS: BP 124/84; PULSE 84; RESP 18
[2025-04-28] MEDS: ACETAMINOPHEN 500 MG TABLET 1000 MG PO ×2 (05:42→12:34)
[2025-04-28] MEDS: IBUPROFEN 600 MG TABLET PO ×2 (05:42→12:34)
[2025-04-28 07:49] VITALS: BP 127/64; PULSE 79; RESP 16; TEMP 36.8; O2SAT 100
--- NOTE | 2025-04-28 07:52 | P.DS_ITS ---
DS: Admitting Diagnosis Discharge Date 04/28/25 <Antoinette Go MD - Last Filed: 04/28/25 10:27> Admitting Diagnosis elective repeat section <Arsenio Mathew MD - Last Filed: 04/30/25 12:37> DS: Discharge Diagnosis Discharge Diagnosis (1) Delivery by section: Status: Acute <Arsenio Mathew MD - Last Filed: 04/30/25 12:37> OB - DS: Summary Hospital Course Hospital Course: she was admitted for elective repeat section. She had an uncomplicated repeat section. Postoperatively she did well. She had adequate pain control tolerated regular diet was ambulating well positive flatus. <Arsenio Mathew MD - Last Filed: 04/30/25 12:37> OB Procedures : NST and Ultrasound <Arsenio Mathew MD - Last Filed: 04/30/25 12:37> OB Procedures Intrapartum: <Arsenio Mathew MD - Last Filed: 04/30/25 12:37> OB Procedures: : None <Arsenio Mathew MD - Last Filed: 04/30/25 12:37> Peripartum Data Delivery Method: Section <Arsenio Mathew MD - Last Filed: 04/30/25 12:37> Procedures: Procedures Operation Date: 04/26/25 07:30 Actual Procedure Side Surgeon p Section Not Applicable Arsenio Mathew MD <Arsenio Mathew MD - Last Filed: 04/30/25 12:37> complications: none <Arsenio Mathew MD - Last Filed: 04/30/25 12:37> Status at Discharge Functional status at discharge: independent ambulation <Arsenio Mathew MD - Last Filed: 04/30/25 12:37> Overall status at discharge: patient is back to baseline <Antoinette Go MD - Last Filed: 04/28/25 10:27> Time Spent with Patient Time attestation: Total time spent providing and/or coordinating discharge services: <Arsenio Mathew MD - Last Filed: 04/30/25 12:37> Exam Const: General: cooperative <Arsenio Mathew MD - Last Filed: 04/30/25 12:37> General: healthy appearing, comfortable and no acute distress <Antoinette Go MD - Last Filed: 04/28/25 10:27> Orientation/consciousness: oriented to person, oriented to place and oriented to time <Arsenio Mathew MD - Last Filed: 04/30/25 12:37> HENMT: Face/Nose/Sinus: Normal external nose present <Arsenio Mathew MD - Last Filed: 04/30/25 12:37> Eyes: General: appearance normal, both eyes and all related structures <Arsenio Mathew MD - Last Filed: 04/30/25 12:37> Resp: Effort & Inspection: normal respiratory effort <Arsenio Mathew MD - Last Filed: 04/30/25 12:37> Auscultation: clear to auscultation bilaterally <Antoinette Go MD - Last Filed: 04/28/25 10:27> Cardio: Rate: regular rate <Antoinette Go MD - Last Filed: 04/28/25 10:27> GI: Inspection: normal to inspection <Arsenio Mathew MD - Last Filed: 04/30/25 12:37> Inspection: incision <Antoinette Go MD - Last Filed: 04/28/25 10:27> GI Palp: No abdominal tenderness and Yes Soft to palpation <Antoinette Go MD - Last Filed: 04/28/25 10:27> Auscultation: normal bowel sounds <Antoinette Go MD - Last Filed: 04/28/25 10:27> Other: Incision intact <Arsenio Mathew MD - Last Filed: 04/30/25 12:37> : Other: fundus firm <Antoinette Go MD - Last Filed: 04/28/25 10:27> Skin: General skin exam: normal color <Arsenio Mathew MD - Last Filed: 04/30/25 12:37> Neuro: General: oriented to person, oriented to place and oriented to time <Arsenio Mathew MD - Last Filed: 04/30/25 12:37> Extrem: General: normal to inspection and no calf tenderness <Arsenio Mathew MD - Last Filed: 04/30/25 12:37> Psych: Appearance: grossly normal <Arsenio Mathew MD - Last Filed: 04/30/25 12:37> Affect: normal affect <Antoinette Go MD - Last Filed: 04/28/25 10:27> Attitude: cooperative <Antoinette Go MD - Last Filed: 04/28/25 10:27> Discharge Plan Discharge Attending physician on discharge: Arsenio Mathew <Arsenio Mathew MD - Last Filed: 04/30/25 12:37> Arsenio Mathew <Antoinette Go MD - Last Filed: 04/28/25 10:27> Consulting providers: Andrei James <Arsenio Mathew MD - Last Filed: 04/30/25 12:37> Discharging Clinician: Antoinette Go <Arsenio Mathew MD - Last Filed: 04/30/25 12:37> Antoinette oG <Antoinette Go MD - Last Filed: 04/28/25 10:27> Anticipated Discharge Date/Time: 04/28/25 11:00 <Arsenio Mathew MD - Last Filed: 04/30/25 12:37> Patient Disposition: Home <Arsenio Mathew MD - Last Filed: 04/30/25 12:37> Activity: may shower, no straining, may drive after 2 weeks and pelvic rest <Arsenio Mathew MD - Last Filed: 04/30/25 12:37> may shower, no straining, may drive after 2 weeks and pelvic rest <Antoinette Go MD - Last Filed: 04/28/25 10:27> Diet: regular <Arsenio Mathew MD - Last Filed: 04/30/25 12:37> regular <Antoinette Go MD - Last Filed: 04/28/25 10:27> Discharge Instructions: Education: Mom and Baby Guide Given to: Mother Follow-Up: Call your delivering provider's office for an appointment to be seen in: 1 Week Mom and baby should come to the [facility] for the follow-up appointment. Appointment Date/Time: April 30, 2025 at 10:00 am What to expect at your follow-up visit: Blood Pressure Check Physical Assessment Call [phone] if you are unable to keep your appointment time. BREAST CARE: * Wear a snug supportive bra. * For engorgement discomfort: Breast Feeding: * Apply warm moist washcloths * Express milk as needed to relieve engorgement * Wear loose clothing Bottle Feeding: * May apply ice packs * For sore nipples: * Identify correct latch-on * Apply warm moist washcloths before and after nursing * Air dry nipples after nursing * May apply Lansinoh cream to nipples ABDOMINAL INCISION: * Allow incision to air dry * Do NOT use lotions or powders on your incision * When showering, allow soap and water to run over the incision, but do not wash incision PERINEAL CARE: * Until bleeding stops, use your clementine bottle after urinating * Change your pad frequently throughout the day * You may take sitz baths several times a day (fill your bathtub with warm water and soak for 20 minutes.) Do NOT bathe in the water * No tub baths until seen by your physician - You may shower ACTIVITY: * Rest as much as possible. * Do not exercise or lift anything heavier than your baby (such as laundry or other children.) * Avoid stairs or driving as much as possible. * Do not put anything into the vagina. No douching, tampons, or sexual activity until seen by physician. NOTIFY PHYSICIAN IF YOU HAVE ANY QUESTIONS OR IF ANY OF THE FOLLOWING SYMPTOMS OCCUR: * If your incision becomes red, swollen, or more painful than what you have experienced in the hospital. * If your vaginal bleeding becomes foul smelling. * If your vaginal bleeding becomes more heavy than a period or if your bleeding changes from pink to bright red. However, you may pass an occasional walnut- sized clot once or twice for the first week . * If you experience a sharp, shooting pain in your calves. * If you discover a hard, reddened area on your breast or if you experience flu- like symptoms. DIET: * Eat regular, well-balanced meals. * Drink plenty of fluids daily. If , drink to thirst. Take SloFe twice a day Continue daily vitamins. May take over the counter Tylenol for pain. <Arsenio Mathew MD - Last Filed: 04/30/25 12:37> Patient Language: [place]an <Arsenio Mathew MD - Last Filed: 04/30/25 12:37> Stand Alone Forms: General Discharge Information <Arsenio Mathew MD - Last Filed: 04/30/25 12:37> Follow-up/Referrals: Arsenio Mahtew MD [Physician] - 1 Week ( call for appointment) <Arsenio Mathew MD - Last Filed: 04/30/25 12:37> Discharge Medications: New ibuprofen 600 mg Tablet 600 mg PO Q6HR Qty: 30 0RF oxycodone 5 mg Tablet 5 mg PO Q4H PRN (Reason: Pain Rated 4-6) Qty: 20 0RF acetaminophen 500 mg tablet 1,000 mg PO TID Qty: 60 0RF docusate sodium [Colace] 100 mg capsule 100 mg PO BID Qty: 90 0RF Continued One A Day Women's DHA 28 mg iron- 800 mcg combo pack PO <Arsenio Mathew MD - Last Filed: 04/30/25 12:37> Date of admission: 04/26/25 05:36 <Arsenio Mathew MD - Last Filed: 04/30/25 12:37> Primary Care Provider: UNKNOWN,DOCTOR <Arsenio Mathew MD - Last Filed: 04/30/25 12:37> Admitting Provider: Arsenio Mathew <Arsenio Mathew MD - Last Filed: 04/30/25 12:37> Attending physician on admission: Arsenio Mathew <Arsenio Mathew MD - Last Filed: 04/30/25 12:37> Condition: Stable <Arsenio Mathew MD - Last Filed: 04/30/25 12:37>
[2025-04-28] MEDS: MULTIVIT/MIN/PREN/FOL AC/IRON TABLET 1 TAB PO (08:25)
[2025-04-28] MEDS: DOCUSATE SODIUM 100 MG CAPSULE PO (08:25)
[2025-04-28] MEDS: SIMETHICONE 80 MG TAB.CHEW PO ×2 (08:25→12:34)
--- NOTE | 2025-04-28 11:50 | PC.NURSE ---
Consulted with mother concerning needs and she shared her ability to independently latch infant. Latching has been a challenge but mom feels like they had two really good latches this morning. Mother intends to breastfeed at some feedings and pump and bottle feed at others. She is producing large volumes of milk this morning. Mother is feeding appropriately for growth of infant and understands stimulating infant to eat if needed. Infant has had appropriate feedings in the last 24 hours meets the outcomes for weight, output, blood sugar and jaundice at this time. Reinforced understanding of milk production, transition of milk, signs of adequate intake, transition of stool, prevention/relief of engorgement, plugged ducts, mastitis, community resources, and when to call a provider using the resource of the feeding sheet along with the mom and baby guide. She has her own Spectra pump that she is familiar with using. Reviewed flange sizing. Mother voiced understanding of the information shared, is confident to continue effectively her at home, when to call for assistance, denies any additional assistance or education at this time. Reported to the Primary RN.
[2025-04-30 10:23] VITALS: BP 112/83; PULSE 72; RESP 18; TEMP 36.6; O2SAT 98
== END 2025-04-28 14:10 | disposition home or self-care (01) | DRG 787 ==
LOC: ANHOB2 04-28 07:51 → ANHLDR 04-30 13:32 → ANHOB2 04-30 13:32
PROVIDERS: Admitting Provider Obstetrics & Gynecology; Visit Provider Obstetrics & Gynecology
PROC: 10D00Z1 Extraction of Products of Conception, Low, Open Approach (ICD-10-PCS; CPT 59514; principal; 2025-04-26 07:30)
DX: O34.211 Maternal care for low transverse scar from previous cesarean delivery (principal); O10.92 Unspecified pre-existing hypertension complicating childbirth; Z37.0 Single live birth; Z3A.39 39 weeks gestation of pregnancy; O32.0XX0 Maternal care for unstable lie, not applicable or unspecified
CPT/HCPCS: 36415; 85025; A9270; J1100; J1885; J2274; J2371; J2405; J2590; J3480; J7120